=== PATIENT | female | born 1985 | race Caucasian/White ===

== ENCOUNTER 2025-01-17 15:34 | Outpatient (AMB) | payer BC, SELFPAY ==
[2025-01-17 15:37] VITALS: BP 112/64; PULSE 81; O2SAT 97; BMI 37.1
--- NOTE | 2025-01-17 15:37 | MHC.OFFVIS ---
Vital Signs 01/17/25 15:37 Height 5 ft 2 in Weight 202 lb 13.204 oz BMI 37.1 BP 112/64 Blood Pressure Location Lt brachial Position Sitting Pulse 81 Pulse Source Pulse Oximeter Pulse Oximetry (%) 97 Oxygen Delivery Method Room Air Intake Visit Reasons: sleep apnea Commercial Installer Required: No Allergies No Known Allergies Allergy (Verified 01/17/25 15:40) HPI HPI sleep apnea: Details: Clau is a pleasant 39 year old, former minimal smoker, with no significant past medical history. She was referred by PCP for evaluation of MECCA. The patient reports a long-standing history of snoring, which is a common trait among the women in her family. She does not recall when the snoring began but notes it has been persistent and significantly loud. The patient denies experiencing morning headaches, daytime tiredness, or feeling unrested upon waking. Although she does have an infant at home so occasionally will feel daytime fatigue. She reports no respiratory symptoms such as coughing, wheezing, or shortness of breath and has no history of asthma. The patient has a family history of sinus issues, although she does not report significant personal sinus problems. She denies any recent sinus infections or nasal congestion that could contribute to her symptoms. [facility] Social History (Updated 01/17/25 @ 15:41 by Felicitas Bauer Vick) Patient Tobacco Use Status: Former Tobacco user Review of Systems Const Denies chills, Denies excessive sweating, Denies fever(s), Denies headache(s) and Denies night sweats Eyes Denies dry eyes, Denies irritation and Denies itchy eyes ENT Reports Normal hearing present and Denies headache(s) Card Denies chest pain, Denies chest pain at rest, Denies chest pain with activity, Denies claudication, Denies leg edema, Denies dyspnea, Denies dyspnea on exertion, Denies orthopnea and Denies paroxysmal nocturnal dyspnea Resp Denies chest congestion, Denies cough, Denies excessive phlegm production, Denies pain on inspiration, Denies pain with cough, Denies dyspnea, Denies dyspnea on exertion, Denies stridor and Denies wheezing Musc Denies myalgias Neuro Reports Normal hearing present and Denies headache(s) Endo Denies excessive sweating Taras/Lymph Denies lymphadenopathy Aller/Immun Denies itchy eyes, Denies seasonal rhinorrhea and Denies wheezing Physical Exam Vital Signs: Last Vital Signs Pulse 81 01/17/25 15:37 BP 112/64 01/17/25 15:37 Pulse Ox 97 01/17/25 15:37 Oxygen Delivery Method Room Air 01/17/25 15:37 BMI result Body Mass Index 37.1 Const General: cooperative, healthy appearing, comfortable, no acute distress, well developed and alert Nutritional Appearance: obese Orientation/consciousness: patient oriented x3 Limitations: no limitations HEENT Head: Yes normal to inspection, Yes normocephalic and Yes atraumatic Ears: hearing grossly normal bilaterally and external ears normal Teeth and gingiva: other (Mallampati 2-3) Eyes General: appearance normal, both eyes and all related structures Eyelids: Yes eyelids normal Sclerae: sclerae normal EOM: EOMs intact bilaterally Neck Neck: Yes normal visual inspection and Yes no lymphadenopathy Lymphatic: no lymphadenopathy noted Chest Chest palpation & inspection: normal inspection of the chest Resp Effort & Inspection: normal respiratory effort, able to speak in complete sentences, no audible wheezes, no cough, no stridor, not tachypneic, no tripod positioning and no use of accessory muscles Auscultation: clear to auscultation bilaterally Cardio Jugular venous distension: no JVD Rate: regular rate Rhythm: regular rhythm Skin Other: warm, dry General skin exam: no rashes or lesions noted Neuro General: patient oriented x3 Cranial nerves: Yes Normal hearing present Cognition (Neuro): normal cognition Gait exam (Neuro): Normal gait present Extrem General: Yes normal to inspection, Yes capillary refill normal, Yes no clubbing, cyanosis or edema and Yes no pedal edema Psych Appearance: grossly normal and well kempt Speech and movement: Normal speech and movement present and Clear speech present Affect: normal affect Attitude: cooperative Thought process: Normal thought process present Thought content: Normal thought content present Insight: Good insight present (Psych) Judgement: Good judgement present (Psych) Assessment & Plan Assessment & Plan (1) Loud snoring: Code(s): R06.83 - Snoring Category: Medical Plan A home sleep study is recommended to evaluate for sleep apnea, given the patient's history of snoring and potential risk factors, including Mallampati score 2-3. The study will help determine the severity of any apneic events and guide further management. If the sleep study indicates mild sleep apnea, conservative measures such as positional therapy and lifestyle modifications may be considered. In cases of moderate to severe apnea, further interventions such as CPAP therapy or referral to an ENT specialist may be warranted. All questions were answered and patient is in agreement of plan. Will follow up to review results or sooner if needed. Orders: Orders RT home sleep study Today R06.83 - Snoring Coding Level of Care Code New Pt Level 3 (76792) Diagnoses Loud snoring R06.83
--- OUTSIDE RECORDS SUMMARY | 2025-01-17 15:45 | XMS_ITS | Clinical Summary ---
Author Organization [facility] Address [address] [place] [address] Phone Care Team Providers Care Behavioral Health Worker Name Role Phone Josselin Garcia Primary Care Provider [phone] Surgical History Surgery Date Site/Laterality Comments WISDOM TOOTH EXTRACTION 2014 PROCEDURE:WISDOM TOOTH EXTRACTION Family History Medical History Relation Name Comments Cholelithiasis Father Ava Diabetes type II Father Ava Heart attack Maternal Grandfather Alfie Heart attack Maternal Grandmother Milly Stroke Maternal Grandmother Milly Diabetes type II Mother Sangeeta Dementia Paternal Grandfather Ava COPD Paternal Grandmother Frank Relation Name Status Comments Father Ava Alive Maternal Grandfather Alfie (Age 59) Maternal Grandmother Milly (Age 85) Mother Sangeeta Alive Paternal Grandfather Ava (Age 83) Paternal Grandmother Frank (Age 62) Social History Tobacco Use Types Packs/Day Years Used Date Smoking Tobacco: Never Smokeless Tobacco: Never Alcohol Use Standard Drinks/Week Comments Yes 0 (1 standard drink = 0.6 oz pur e alcohol) Comments Unknown Sex and Gender Information Value Date Recorded Sex Assigned at Not on file Legal Sex Female 1:20 PM EST Gender Identity Not on file Sexual Orientation Not on file Obstetrics History Plan of Treatment Upcoming Encounters Date Type Department Care Team (Late st Contact Info) Description 02/01/2025 4:30 PM EDT Appointment [facility] [address] [place] [address] Health Maintenance Due Date Last Done Comments Cervical Cancer Screening: Pap Smear 2008 Depression Screening 06/11/2022 HIV Screening 06/11/2022 Hepatitis C Screening 06/11/2022 Social Influencers of Health Screening 06/11/2022 COVID-19 Vaccine ( season) 2024 Influenza Vaccine (#1) 2025 04/13/2020, 2015 Cholesterol Screening (Lipid Panel) 09/14/2025 09/14/2020 DTaP,Tdap,and Td Vaccines (10 - Td or Tdap) 04/09/2027 04/09/2017, 05/01/2006, 11/15/2003, Additional history exists HIB Vaccines Completed 01/18/1989 IPV Vaccines Completed 07/31/1992, 07/0 07/1988, 1987, Additional history exists MMR Vaccines Completed 10/13/1997, 10/12/1988 Hepatitis B Vaccines Completed 12/22/2000, 11/19/1999, 10/15/1999 Meningococcal ACWY Vaccine Completed 05/01/2006 HPV Vaccines Aged Out No longer eligi ble based on patient's age to complete this topic Hepatitis A Vaccines Aged Out No long er eligible based on patient's age to complete this topic Meningococcal B Vaccine Aged Out No l onger eligible based on patient's age to complete this topic Pneumococcal Vaccine: Pediatrics (0 to 5 Years) and At-Risk Patients (6 to 49 Years) Aged Out No longer eligible based on patient's age to complete this topic RSV Immunization Patients Under 20 months Aged Out No longer eligible based on patient's age to complete this topic Varicella Vaccines Aged Out No longer eligible based on patient's age to complete this topic Insurance [employer] Care Teams Behavioral Health Worker Relationship Specialty Start Date End Date Josselin Garcia PA [address] [place] [phone] PCP - General 09/07/24
--- OUTSIDE RECORDS SUMMARY | 2025-01-17 15:45 | XMS_ITS | Data Portability ---
Author Organization [place] - [facility], [facility] Address [address] [place] [address] Assessment No assessment recorded. Plan of Treatment Reminders Order Date Submit Date Provider Last Modified By Organization Details Last Modified Time Details Appointments None recorded. Lab urinalysis , dipstick 2019 020 In-Office Order, Internal Use Only DO Not Attach Compendium DO Not Attach Compendium, Do Not Delete/merge, [id number] 0 11:03:59 pap, IG + HPV 2019 020 [facility], [address] [place], [id number] 0 14:23:44 Referral None recorded. Procedures None recorded. Surgeries None recorded. Imaging None recorded. Medication Orders None recorded. Patient TargetsNo targets recorded. Patient Instructions Encounter Date Encounter Id Patient Instructions Last Modified By Organization Details Last Modified Time 08/03/2019 [id number] tips to help you stay healthy Not available 08/03/2019 11:03:59 Reason for Referral None Reported. Results Created Date Observation Date Name Description Value Unit Range Abnormal Flag Note LastModifiedBy Organization Detail LastModifiedTime 08/03/19 20 08/03/2019 urina lysis , dipst ick Leukocytes Negati ve Not Available In-Office Order Internal Use Only DO Not Attach Compendium DO Not Attach Compendium, Do Not Delete/merge, [id number] 08/03/2019 10:46:31 08/03/19 20 08/03/2019 urina lysis , dipst ick Nitrite negati ve Not Available In-Office Order Internal Use Only DO Not Attach Compendium DO Not Attach Compendium, Do Not Delete/merge, [id number] 08/03/2019 10:46:31 08/03/1908/03/2019 urina lysis , dipst ick Urobilinogen Normal : 0.2 mg/dl Not Available In-Office Order Internal Use Only DO Not Attach Compendium DO Not Attach Compendium, Do Not Delete/merge, [id number] 08/03/2019 10:46:31 08/03/1908/03/2019 urina lysis , dipst ick Protein Negati ve Not Available In-Office Order Internal Use Only DO Not Attach Compendium DO Not Attach Compendium, Do Not Delete/merge, 08/03/2019 10:46:08/03/1908/03/2019 urina lysis , dipst ick pH 5.0 Not Available In-Office Order Internal Use Only DO Not Attach Compendium DO Not Attach Compendium, Do Not Delete/merge, 08/03/2019 10:46:31 08/03/1908/03/2019 urina lysis , dipst ick Blood Modera te: +2 Not Available In-Office Order Internal Use Only DO Not Attach Compendium DO Not Attach Compendium, Do Not Delete/merge, 08/03/2019 10:46:31 08/03/1908/03/2019 urina lysis , dipst ick Specific [place] 1.000 Not Available In-Off ice Order Internal Use Only DO Not Attach Compendium DO Not Attach Compendium, Do Not Delete/merge, 08/03/2019 10:46:31 08/03/1908/03/2019 urina lysis , dipst ick Ketone Negati ve Not Available In-Office Order Internal Use Only DO Not Attach Compendium DO Not Attach Compendium, Do Not Delete/merge, 08/03/2019 10:46:31 08/03/1908/03/2019 urina lysis , dipst ick Bilirubin Negati ve Not Available In-Office Order Internal Use Only DO Not Attach Compendium DO Not Attach Compendium, Do Not Delete/merge, [id number] 08/03/2019 10:46:31 08/03/1908/03/2019 urina lysis , dipst ick Glucose Negati ve Not Available In-Office Order Internal Use Only DO Not Attach Compendium DO Not Attach Compendium, Do Not Delete/merge, [id number] 08/03/2019 10:46:31 08/04/1908/04/2019 HPV DNA, high- risk HPV MRNA E6/E7 Negati ve negati ve APTIM A HPV assay detec ts 14 high risk HPV types (HPV 16,18 ,31,3 3,35, 39,45 ,51,5 2,56, 58,59 ,66,6 8). The assay is FDA appro ozzie for testi ng ThinP rep liqui d Pap vials but not FDA appro ozzie for detec ting HPV in SureP ath liqui d Pap speci mens. In-ho use valid ation has shown the assay can detec t all [facility] Not Available [facility] [address] [place], [address] 08/06/2019 14:23:41 08/04/1908/04/2019 pap, IG + HPV report Report Final Gynec ologi estuardo Cytol ogy Repor t ----- ----- ----- ----- ----- ----- ----- ----- ----- ----- ----- ----- ThinP rep Pap Test, HPV Scree n, Refle x HPV Genot ype SPECI MEN ADEQU ACY: SATIS FACTO RY FOR EVALU ATION ; ENDOC ERVIC AL/TR ANSFO RMATI ON ZONE COMPO NENT ABSEN T/INS [facility] . INTER PRETA TION: NEGAT AARON FOR INTRA EPITH IGNACIO [place] OR RODY HUNT . Elect nicolasa Bravo d: Markell mota, ANA CRISTINA Vidal (ASCP ) ----- ----- ----- ----- ----- ----- ----- ----- ----- ----- ----- ----- CLINI ESTUARDO INFOR BIJAL N: LMP: NG Speci men [facility] e: Cervi x, Endoc ervix HPV RESUL TS: HPV mRNA E6/E7 Appro ozzie: 08/04 Negat aaron REF RANGE : Negat aaron CPT Codes : 99077 ICD Codes : Z01.4 19 Not Available [facility] [address] [place], [address] 08/06/2019 14:23:44 Result Notes None recorded. Problems No Known Problems Procedures Surgical History Date Name Laterality Status Provider Name and Address Organization Details Recorded Time 08/03/2019 Date of Last Pap Smear completed SPEEDY CARLSON APRN [address] [facility], [address] [place] [address], [phone], [facility] 08/03/2019 11:07:08 Imaging Results None recorded. Procedure Notes None recorded. Medical Equipment None Reported. Allergies No known drug allergies Medications Not known to be on any medication Vitals Date Recorded Body height Body mass index (BMI) Body weight Systolic And Diastolic Provider Name and Address Organization Details Last Updated DateTime 08/03/2019 157.48 cm 33.5 kg/m2 75054.4 g 130/82 mm[Hg] Linda Juliette [facility] 08/03/2019 10:45:41 Social History Question Answer Notes LastModified by [employer] Details LastModified Time Tobacco Smoking Status Former Smoker Quit 2014, smoked for 5 years SPEEDY CARLSON APRN [address] [facility], [address] [place] [address], [phone], [facility] 08/03/2019 10:49:14 Drug Use? No Information no t available 08/03/2019 Sex: Unknown Functional Status Question Answer Note LastModified by [employer] Details LastModified Time What is your level of alcohol consumption? 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 Family History Relationship Description Onset Age of this Age Resolved Age Notes LastModified by Organization Details LastModified Time Maternal Aunt Malignant tumor of breast 50 Not available 2019 10:48:08 Father Diabetes mellitus Not available 2019 10:48:45 Mother Diabetes mellitus multip le aunts, uncles , grandp arents as well Not available 08/03/2019 10:48:45 Notes:no family hx of ovaria n, uterine or colon cancer Medical History No medical history recorded. Gynecological History Statement/Question Response Abnormal Pap N Date of LMP 2019 STIs/STDs N HPV Vaccine Y Duration of Flow (days) 6 Age at Menarche 14 Current Control Method None Frequency of Cycle (Q days) 26 Sexually Active? Yes Sexual Problems? N Date of Last Pap Smear 08/03/2019 Obstetrics History GPAL:G 0 P 0 0 0 0 Past Encounters Encounter ID Performer Location Encounter Start Date Encounter Closed Date Diagnosis/Indication Diagnosis SNOMED-CT Code Diagnosis ICD10 Code Diagnosis Note [id number] SPEEDY CARLSON APRN CWO1 [address] [place] [phone] 08/03/2019 10:31:31 08/03/2019 11:11:27 Gynecologic examination 52208494 Z01.419 A/P: -Pap done today. - Discussed control, declined now, TTC. Start PNV. -Reviewed self breast exams/percy st awareness -Encourage d healthy lifestyle: diet, exercise, no smoking, alcohol in moderation , annual visits with PCP for labs. RTO in 1 year or PRN Health Concerns Section Related Observation LastModified by Organization Detai ls LastModified Time None Recorded Concern Status LastModified by Organization Details LastModified Time None Recorded Advance Directives Directive None Recorded Payers Insurance Date Sequence Insurance Name Policy Number Policy Cadet Covered Member ID Cadet Member ID Guarantor Name 08/09/2019 1 OBDULIANA [id number] Clau Peters [id number] Clau Peters Notes Date Note Type Note Provider Name and Address Organization Details Recorded Time 08/03/2019 text/html 34 y/o G0 here f or annual exam. Feeling well. Last pap 2013. No hx of abnormal paps. Sexually active with . Not using any contraception, ok if she gets . C/o intermittent left armpit burning feeling- seen by PCP who recommended switching deoderant which has helped. She also has dry skin and feels her bra might be chaffing that area. Works in [employer] for a group of [employer] SPEEDY CARLSON APRN [address] [place], [place] [address], [address] Floor, [place], [address], [place] [facility] 08/03/2019 11:46:29 OBGyn Episode No OBEpisode recorded.
--- OUTSIDE RECORDS SUMMARY | 2025-01-17 15:45 | XMS_ITS | Encounter Summary ---
Author Organization [facility] Address [address] [place] [id number] Care Team Providers Care Pc Tech Name Role Phone Pcp, No Primary Care Provider Unavailabl e Hussain Gould MD Primary Care Provider [phone] Madhav Toribio DO Unavailable Pcp, No Primary Care Provider Unavailabl e Reason for Visit * Reason Comments Other Encounter Details Date Type Department Care Team (Late st Contact Info) Description 11/04/2022 Telephone [facility] [address] [place] [phone] Pcp, No Other Social History Tobacco Use Types Packs/Day Years Used Date Smoking Tobacco: Former Cigarettes Smokeless Tobacco: Never Alcohol Use Standard Drinks/Week Comments Yes 0 (1 standard drink = 0.6 oz pur e alcohol) 1-3 drinks per week PHQ-2 Answer Date Recorded PHQ-2 Total Score 0 11/07/2022 Comments Unknown Sex and Gender Information Value Date Recorded Sex Assigned at Not on file Legal Sex Female 12:18 PM EDT Gender Identity Not on file Sexual Orientation Not on file COVID-19 Exposure Response Date Recorded In the last 10 days, have yo u been in contact with someone who was confirmed or suspected to have Coronavirus/COVID-19? No / Unsure 11/07/2022 9:38 AM EDT documented as of this encounter Functional Status * Question Answer Date of Assessment Author Feeling nervous, anxious, or on edge 0 11/07/2022 9:56 AM EDT Radha Rivas MA Not being able to stop or co ntrol worrying 0 11/07/2022 9:56 AM EDRadha Lay MA Worrying too much about diff erent things 0 11/07/2022 9:56 AM EDT Radha Rivas MA Trouble relaxing 0 11/07/2022 9:56 AM EDT Radha Verde MA Being so restless that it is hard to sit still 0 11/07/2022 9:56 AM EDT Radha Rivas MA Becoming easily annoyed or irritable 0 11/07/2022 9:56 AM EDT Radha Rivas MA Feeling afraid as if somethi ng awful might happen 0 11/07/2022 9:56 AM EDRadha Lay MA * Over the past 2 weeks, how often have you been bothered by any of the following problems? Question Answer Date of Assessment Author Patient Health Questionnaire -2 Score 0 11/07/2022 9:56 AM Radha Lloyd MA * Question Answer Date of Assessment Author Patient Health Questionnaire -9 Score 0 11/07/2022 9:56 AM EDRadha Lay MA * Over the last 2 weeks, how often have you been bothered by any of the following problems? Question Answer Date of Assessment Author FELIPE-7 Total Score 0 11/07/2022 9:56 AM Radha Lloyd MA * Question Answer Date of Assessment Author Little interest or pleasure in doing things Not at all 11/07/2022 9:56 AM Radha Lloyd MA Feeling down, depressed, or hopeless Not at all 11/07/2022 9:56 AM Radha Lloyd MA Trouble falling or staying asleep, or sleeping too much Not at all 11/07/2022 9:56 AM Radha Lloyd MA Feeling tired or having little energy Not at all 11/07/2022 9:56 AM Radha Lloyd MA Poor appetite or overeating Not at all 11/07/2022 9:56 AM Radha Lloyd MA Feeling bad about yourself - or that you are a failure or have let yourself or your family down Not at all 11/07/2022 9:56 AM Radha Lloyd MA Trouble concentrating on things, such as reading the newspaper or watching television Not at all 11/07/2022 9:56 AM Radha Lloyd MA Moving or speaking so slowly that other people could have noticed? Or the opposite - being so fidgety or restless that you have been moving around a lot more than usual. Not at all 11/07/2022 9:56 AM Radha Lloyd MA Thoughts that you would be better off or hurting yourself in some way Not at all 11/07/2022 9:56 AM Radha Lloyd MA How difficult have these problems made it for you to do your work, take care of things at home, or get along with other people? Not difficult at all 11/07/2022 9:56 AM Radha Lloyd MA documented as of this encounter Miscellaneous Notes * Telephone Encounter - Marly Weinberg RN - 11/05/2022 1:22 PM EDT Advised patient of below. She verbalized understanding. documented in this encounter Plan of Treatment Not on file documented as of this encounter Visit Diagnoses Not on filedocumented in this encounter Care Teams Pc Tech Relationship Specialty Start Date End Date Pcp, No PCP - General General Medicine 09/10/22 11/06/22 Hussain Gould MD PCP - General Internal Medicine 11/07/22 09/15/24 Madhav Toribio DO [address] [place] [address] PCP - [place] [employer] Attributed 07/14/22 11/10/22 Pcp, No PCP - General General Medicine 09/16/24 documented as of this encounter
--- OUTSIDE RECORDS SUMMARY | 2025-01-17 15:45 | XMS_ITS | Clinical Summary ---
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 Annual physical exam 08/03/2019 Last Assessment & Plan: Up-to-date with tetanus shot BMI 32.0-32.9,adult 08/03/2019 Last Assessment & Plan: Diet and exercise discussed with patient in details. Anxiety 08/03/2019 Last Assessment & Plan: Stable, Seeing therapist. Pain in axilla, left 06/16/2019 Last Assessment & Plan: Advised to avoid tight clothing around the armpit Try trimming instead of shaving Change deodorant If doesn't go away, get ultrasound done Can also try hydrocortisone cream OTC Healthcare maintenance 04/09/2017 Resolved Problems Problem Noted Date Diagnosed Date Resolved Date Encounter for routine gyneco logical examination 03/27/2016 04/09/2017 Contact with and suspected e xposure to infections with predominantly sexual mode of transmission 03/27/2016 04/09/2017 Immunizations Name Administration Dates Next Due Influenza Quad (Afluria/Fluz one) 0.5mL >=6mon Vial (SD-IIV4) 04/13/2020,04/27/2016 Tdap 04/09/2017,03/28/2003 Family History Medical History Relation Name Comments [...] Date Smoking Tobacco: Never Smokeless Tobacco: Never Tobacco Cessation:Counseling Given: No Alcohol Use Standard Drinks/Week Comments Yes 0 (1 standard drink = 0.6 oz pur e alcohol) social weekly drinker Sex and Gender Information Value Date Recorded Sex Assigned at Not on file Gender Identity Not on file Sexual Orientation Not on file Last Filed Vital Signs Vital Sign Reading Time Taken Comments Blood Pressure 126/82 08/30/2020 3:04 PM EST Pulse 83 08/30/2020 3:04 PM EST Temperature 36.3 C (97.3 F) 08/30/2020 3:04 PM EST Respiratory Rate 14 08/03/2019 11:21 AM EST Oxygen Saturation 97% 08/30/2020 3:04 PM EST Inhaled Oxygen Concentration - - Weight 84.1 kg (185 lb 6.4 oz) 08/30/2020 3:04 P M EST Height 160 cm (5' 3 ) 08/30/2020 3:04 PM EST Body Mass Index 32.84 08/30/2020 3:04 PM EST Plan of Treatment Health Maintenance Due Date Last Done Comments Cervical Cancer Screening (HPV every 5 years) 1985 Hepatitis B Vaccines (1 of 3 - 3-dose series) 1985 Hepatitis C Screening 1985 COVID-19 Vaccine (#1) 01/28/1988 BMI Counseling 08/30/2021 08/30/2020, 04/14, 04/09/2017 Depression Screening 08/30/2021 08/30/2020, 05/11/2018, 04/09/2017, Additional history exists Preventative Health Evaluation 08/30/2021 08/30/2020, 08/30/2020, 08/03/2019, Additional history exists Cervical Cancer Screening (Pap Smear) 07/14/2024 07/14/2019, 03/27/2016, 06/06/2014 Influenza Vaccine (#1) 2025 04/13/2020, 2015 DTap / Tdap / Td (3 - Td or Tdap) 04/09/2027 04/09/2017, 03/28/2003 Pneumococcal Vaccine Aged Out No long er eligible based on patient's age to complete this topic RSV Ped < 20 months Aged Out No longe r eligible based on patient's age to complete this topic Clau Peters Personal/Family Self 1985 [address] [place], [place]
--- OUTSIDE RECORDS SUMMARY | 2025-01-17 15:46 | XMS_ITS | Patient Health Record ---
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 Metabolic Panel ([id number] Reviewed date:08/16/2024 04:10:28 PM Interpretation: Performing Lab:[facility] [place], [address] [place] [address], Phone - [phone], Director - [facility] Notes/Report: Test(s) 018953-Rsxpfruznwjs, Total, LC/MS was developed and its performance characteristics determined by [facility]. It has not been cleared or approved by the Food and Drug Administration. Glucose 136 70-99 mg/dL BUN 15 6-20 mg/dL Creatinine 0.73 0.57-1.00 mg/dL eGFR 109 >59 mL/min/1.73 BUN/Creatinine Ratio 21 9-23 Sodium 138 134-144 mmol/L Potassium 4.3 3.5-5.2 mmol/L Chloride 104 96-106 mmol/L Carbon Dioxide, Total 21 20-29 mmol/L Calcium 9.4 8.7-10.2 mg/dL Protein, Total 7.2 6.0-8.5 g/dL Albumin 4.2 3.9-4.9 g/dL Globulin, Total 3.0 1.5-4.5 g/dL Bilirubin, Total 0.3 0.0-1.2 mg/dL Alkaline Phosphatase 123 44-121 IU/L AST (SGOT) 18 0-40 IU/L ALT (SGPT) 25 0-32 IU/L Lipid Panel-[id number] Reviewed date:08/16/2024 04:11:52 PM Interpretation: Performing Lab:[facility] [place], [address] [place] [address], [place], Phone - [phone], Director - Celia Notes/Report: Test(s) 643534-Owmtxqpzruqv, Total, LC/MS was developed and its performance characteristics determined by [facility]. It has not been cleared or approved by the Food and Drug Administration. Cholesterol, Total 148 100-199 mg/dL Triglycerides 157 0-149 mg/dL HDL Cholesterol 40 >39 mg/dL VLDL Cholesterol Woo 27 5-40 mg/dL LDL Chol Calc (NIH) 81 0-99 mg/dL Vitamin D, 38-Iiehaoo-[id number] Reviewed date:08/16/2024 08:30:08 AM Interpretation: Performing Lab:[facility] [place], [address] [place] [address], Phone - [phone], Director - Celia Notes/Report: Test(s) 835960-Decbwxvaipjk, Total, LC/MS was developed and its performance characteristics determined by [facility]. It has not been cleared or approved by the Food and Drug Administration. Vitamin D, 25-Hydroxy 35.0 30.0-100.0 ng/mL Vitamin D deficiency has been defined by the State Line of Medicine and an Endocrine Society practice guideline as a level of serum 25-OH vitamin D less than 20 ng/mL (1,2). The Endocrine Society went on to further define vitamin D insufficiency as a level between 21 and 29 ng/mL (2). 1. IOM (State Line of Medicine). 2010. Dietary reference intakes for calcium and D. [place]: The National Academies Press. 2. Ramona MF, Rafita NC, Shaila SNYDER, et al. Evaluation, treatment, and prevention of vitamin D deficiency: an Endocrine Society clinical practice guideline. JCEM. 2010; 96(7):1911-30. Testosterone, Free+Total LC/ MS-[id number] Reviewed date:08/16/2024 08:30:08 AM Interpretation: Performing Lab:[facility] [place], [address] [place] [address], [place], Phone - [phone], Director - Celia Notes/Report: Test(s) 385358-Loztaxgsrzie, Total, LC/MS was developed and its performance characteristics determined by [facility]. It has not been cleared or approved by the Food and Drug Administration. Testosterone, Total, LC/MS 10.6 10.0-55.0 ng/d L Free Testosterone(Direct) 0.6 0.0-4.2 pg/mL FSH and LH-053741 Reviewed date:08/16/2024 08:30:08 AM Interpretation: Performing Lab:[facility] [address], Phone - [phone], Director - [facility] Notes/Report: Test(s) 281468-Nywroaejlavu, Total, LC/MS was developed and its performance characteristics determined by [facility]. It has not been cleared or approved by the Food and Drug Administration. LH 7.0 Adult Female Range Follicular phase 2.4 - 12.6 Ovulation phase 14.0 - 95.6 Luteal phase 1.0 - 11.4 Postmenopausal 7.7 - 58.5 FSH 3.9 Adult Female Range Follicular phase 3.5 - 12.5 Ovulation phase 4.7 - 21.5 Luteal phase 1.7 - 7.7 Postmenopausal 25.8 - 134.8 Triiodothyronine (T3), Free- [id number] Reviewed date:08/16/2024 08:30:08 AM Interpretation: Performing Lab:[facility] [address], [place], Phone - [phone], Director - [facility] Notes/Report: Test(s) 375219-Qvzmpnszpuzk, Total, LC/MS was developed and its performance characteristics determined by [facility]. It has not been cleared or approved by the Food and Drug Administration. Triiodothyronine (T3), Free 3.7 2.0-4.4 pg/mL CBC With Differential/Platel et-[id number] Reviewed date:08/16/2024 08:30:43 AM Interpretation: Performing Lab:[facility] [address], Phone - [phone], [facility] Notes/Report: Test(s) 932309-Oyrpohgihfps, Total, LC/MS was developed and its performance characteristics determined by [facility]. It has not been cleared or approved by the Food and Drug Administration. WBC 8.3 3.4-10.8 x10E3/uL RBC 4.54 3.77-5.28 x10E6/uL Hemoglobin 12.6 11.1-15.9 g/dL Hematocrit 38.9 34.0-46.6 % MCV 86 79-97 fL MCH 27.8 26.6-33.0 pg MCHC 32.4 31.5-35.7 g/dL RDW 13.3 11.7-15.4 % Platelets 281 150-450 x10E3/uL Neutrophils 66 Not Estab. % Lymphs 24 Not Estab. % Monocytes 7 Not Estab. % Eos 2 Not Estab. % Basos 1 Not Estab. % Neutrophils (Absolute) 5.5 1.4-7.0 x10E3/uL Lymphs (Absolute) 2.0 0.7-3.1 x10E3/uL Monocytes(Absolute) 0.6 0.1-0.9 x10E3/uL Eos (Absolute) 0.1 0.0-0.4 x10E3/uL Baso (Absolute) 0.1 0.0-0.2 x10E3/uL Immature Granulocytes 0 Not Estab. % Immature Grans (Abs) 0.0 0.0-0.1 x10E3/uL Estrogens, Total-[id number] Reviewed date:08/16/2024 08:30:08 AM Interpretation: Performing Lab:[facility] [place], [address] [place] [address], [place], Phone - [phone], Director - [facility] Notes/Report: Test(s) 149631-Esbngdqmvosw, Total, LC/MS was developed and its performance characteristics determined by [facility]. It has not been cleared or approved by the Food and Drug Administration. Estrogens, Total 161 Prepubertal < 40 Female Cycle: 1-10 Days 16 - 328 11-20 Days 34 - 501 21-30 Days 48 - 350 Post-Menopausal 40 - 244 Insulin-431326 Reviewed date:08/16/2024 08:30:08 AM Interpretation: Performing Lab:[facility], [address] [facility], [place], Phone - [phone], Director - [facility] Notes/Report: Test(s) 347143-Sfsggpceaulj, Total, LC/MS was developed and its performance characteristics determined by [facility]. It has not been cleared or approved by the Food and Drug Administration. Insulin 22.3 2.6-24.9 uIU/mL Progesterone-284870 Reviewed date:08/16/2024 08:30:08 AM Interpretation: Performing Lab:[facility] [address], Phone - [phone], [facility] Notes/Report: Test(s) 042163-Dfqtvehujqbs, Total, LC/MS was developed and its performance characteristics determined by [facility]. It has not been cleared or approved by the Food and Drug Administration. Progesterone 8.3 Follicular phase 0.1 - 0.9 Luteal phase 1.8 - 23.9 Ovulation phase 0.1 - 12.0 First trimester 11.0 - 44.3 Second trimester 25.4 - 83.3 Third trimester 58.7 - 214.0 Postmenopausal 0.0 - 0.1 TSH-[id number] Reviewed date:08/16/2024 08:30:08 AM Interpretation: Performing Lab:[facility] [address], Phone - [phone], [facility] [place]/Report: Test(s) 702627-Fylkicbxrcra, Total, LC/MS was developed and its performance characteristics determined by [facility]. It has not been cleared or approved by the Food and Drug Administration. TSH 1.120 0.450-4.500 uIU/mL Cortisol-627809 Reviewed date:08/16/2024 08:30:08 AM Interpretation: Performing Lab:[facility] [address], Phone - [phone], [facility] [place]/Report: Test(s) 776123-Mjzpgfnbcmkp, Total, LC/MS was developed and its performance characteristics determined by [facility]. It has not been cleared or approved by the Food and Drug Administration. Cortisol 6.5 6.2-19.4 ug/dL Please Note: The reference interval and flagging for this test is for an AM collection. If this is a PM collection please use: Cortisol PM: 2.3-11.9 Thyroxine (T4) Free, Direct- [id number] Reviewed date:08/16/2024 08:30:08 AM Interpretation: Performing Lab:[facility] [address], Phone - [phone], [facility] Steve Notes/Report: Test(s) 956590-Nhkpeafrzaka, Total, LC/MS was developed and its performance characteristics determined by [facility]. It has not been cleared or approved by the Food and Drug Administration. T4,Free(Direct) 1.36 0.82-1.77 ng/dL Vitamin [id number] Reviewed date:08/16/2024 08:30:08 AM Interpretation: Performing Lab:[facility] [place], [address] [place] [address], [place], Phone - [phone], Director - [facility] Notes/Report: Test(s) 714440-Upsmmojbudht, Total, LC/MS was developed and its performance characteristics determined by [facility]. It has not been cleared or approved by the Food and Drug Administration. Vitamin B12 237 933-7336 pg/mL Hemoglobin H5e-966044 Reviewed date:08/16/2024 04:12:00 PM Interpretation: Performing Lab:[facility] [place], [address] [place] [address], [place], Phone - [phone], Director - [facility] Notes/Report: Test(s) 650944-Rudasvpzwplm, Total, LC/MS was developed and its performance characteristics determined by [facility]. It has not been cleared or approved by the Food and Drug Administration. Hemoglobin A1c 6.3 4.8-5.6 % . Prediabetes: 5.7 - 6.4 Diabetes: >6.4 Glycemic control for adults with diabetes: <7.0 Reason For Referral Reason Evaluate & Treat Diagnosis 1 Sleep apnea, unspeci fied type (G47.30) Referral Organization [facility] Referring Provider First Name RAIZA Referring Provider Last Name NIKI Referring Provider Speciality Internal edicine Referred Provider Isacc Palomares Referred Provider Specialty Pulmonology General Notes Delfina Antonio 2024 09:39:40 AM > sent referral to DEANGELO leung KIERSTEN 08/24/2024 10:39:24 AM >[address] [facility], [address], [facility] [address], 5 [address] from Patient's Address, , Referral Priority Routine Reason Evaluate & Treat C oncerns about moles Diagnosis 1 Skin mole (D22.9) Referral Organization [facility] Referring Provider First Name RAIZA Referring Provider Last Name NIKI Referring Provider Speciality Internal edicine Referred Provider Specialty Dermatology General Notes Delfina Antonio 2024 09:41:41 AM > stephenson , \ , Referral Priority Routine Reason Dr Hampton Diagnosis 1 Sleep apnea, unspeci fied type (G47.30) Referral Organization [facility] NATHAN KARIMI Referring Provider First Name RAIZA Referring Provider Last Name NIKI Referring Provider Speciality Internal edicine Referred Provider Specialty Pulmonology General Notes Delfina Antonio 2024 08:25:51 AM > [facility] , [phone], [phone] Clinical Notes HARRY BRIGHTTEN 0 11/17/2024 09:44:23 AM >Yasmeen from [facility], called and stated that they do not see patient for sleep studies, they normally refer them out to either [facility] or somewhere else, I will refer her to Dr dyer in [place], [phone], [phone], Marina Dodson 11/22/2024 04:10:52 PM > Scheduled for 01/15 at 3:30 pm at [facility]. Pt aware Referral Priority Routine Reason Evaluate & Treat Diagnosis 1 Routine gynecologica l examination (Z01.419) Referral Organization [facility] NATHAN KARIMI Referring Provider First Name RAIZA Referring Provider Last Name NIKI [facility] Referred Provider Specialty OB - Gynecol ogy General Notes Ashley Rivera 0 01/03/2025 10:52:36 AM > [facility] p. [phone], f. [phone], Ashley Rivera 01/05/2025 11:22:27 AM >Faxed to [facility] Referral Priority Routine Medications Medication SIG (Take, Route, Fr equency, Duration) Notes Start Date End Date Status Fiber Active Meridian 3 Active Digestive Enzyme - as directed Orally Active Probiotic 250 MG as directed Orally Active 28-0.8 MG 2 tablet Orally Once a day Active Social History Tobacco Use: Social History Observation Description Date Details (start date - stop date) Former Smoker NA - NA Tobacco Use/Smoking Question Answer Notes Are you a former smoker How long has it been since you last smoked? 5-10 years Alcohol Screen (Audit-C) Question Answer Notes Did you have a drink containing alcohol in the p ast year? No Points 0 Interpretation Negative Section Notes: quit drinking in 2022 Rare ETOH Patient works in [employer] quit drinking in 2022 Rare ETOH Patient works in [employer] quit drinking in 2022 Rare ETOH Patient works in [employer] quit drinking in 2022 Rare ETOH Patient works in [employer] quit drinking in 2022 Rare ETOH Patient works in [employer] quit drinking in 2022 Rare ETOH Patient works in [employer] quit drinking in 2022 Rare ETOH Patient works in [employer] quit drinking in 2022 Rare ETOH Patient works in [employer] Problems Problem Type SNOMED Code ICD Code Onset Dates Problem Status W/U Status Risk Notes Problem Vitamin D deficiency (53525713) Vitamin D deficiency, unspecified (E55.9) Active confirmed Problem Lipid screening (102222902) Encounter for screening for lipoid disorders (Z13.220) Active confirmed Problem Anxiety (55301824) Anxiety (F41.9) Active confirmed Problem Adult health examination (235392943) Adult general medical exam (Z00.00) Active confirmed Problem Sleep apnea (40766499) Sleep apnea, unspecified type (G47.30) Active confirmed Problem Seasonal allergy (515664450) Seasonal allergies (J30.2) Active confirmed Problem Skin mole (18133746) Skin mole (D22.9) Active confirmed Problem Numbness (09266987) Numbness (R20.0) Active confirmed Problem Diabetes mellitus screening (645430675) Diabetes mellitus screening (Z13.1) Active confirmed Problem Body mass index 40+ - morbidly obese (404685816) BMI 40.0-44.9, adult (Z68.41) Active confirmed Problem Type II diabetes mellitus without complication (394962447) Type 2 diabetes mellitus without complication, without long-term current use of insulin (E11.9) Active confirmed Problem Weight gain (708917214) Weight gain (R63.5) Active confirmed Problem Obese class II (785389254781753 ) BMI 39.0-39.9,adult (Z68.39) Active confirmed Problem Morbid obesity (663686194) Obesity, morbid, BMI 40.0-49.9 (E66.01) Active confirmed Problem Vitamin B>12< deficiency anaemia (15363954) Anemia due to vitamin B12 deficiency, unspecified B12 deficiency type (D51.9) Active confirmed Problem Obese class II (473775240891277 ) BMI 38.0-38.9,adult (Z68.38) Active confirmed Problem Endocrine/metabo lic screening (809573559) Encounter for screening for endocrine disorder (Z13.29) Active confirmed Problem Tingling (18906287) Tingling (R20.2) Active confirmed Problem History of gestational diabetes mellitus (997837065) History of gestational diabetes (Z86.32) Active confirmed Problem Morbid obesity (303035558) Severe obesity (BMI 35.0-39.9) with comorbidity (E66.01) Active confirmed Vital Signs Heart Rate 67 /min 01/03/2025 Oximetry 97 % 01/03/2025 Blood pressure diastolic 80 mm Hg 01/03/2025 Height 61 in 01/03/2025 Blood pressure systolic 122 mm Hg 01/03/2025 Weight 203.4 lbs 01/03/2025 BMI 38.43 kg/m2 01/03/2025 Encounters Encounter Location Date Provider Diagnosis [facility] [address] [place], [place] 07/06/2024 RAIZA NIKI Weight gain R63.5 ; Seasonal allergies J30.2 ; History of gestational diabetes Z86.32 and Anxiety F41.[address] [facility] [address] [place], [place] 08/12/2024 RAIZA NIKI BMI 40.0-44.9, adult Z68.41 ; Obesity, morbid, BMI 40.0-49.9 E66.01 ; Weight gain R63.5 and Dietary counseling and surveillance Z71.3 [facility] [address] [place], [place] 08/13/2024 RAIZA NIKI Weight gain R63.5 ; Adult general medical exam Z00.00 ; Seasonal allergies J30.2 ; History of gestational diabetes Z86.32 and Anxiety F41.9 [facility] [address] [place], [place] 09/14/2024 RAIZA NIKI BMI 40.0-44.9, adult Z68.41 ; Obesity, morbid, BMI 40.0-49.9 E66.01 ; Weight gain R63.5 and Dietary counseling and surveillance Z71.[address] [facility] [address] [place], [place] 10/14/2024 RAIZA NIKI BMI 39.0-39.9,adult Z68.39 ; Severe obesity (BMI 35.0-39.9) with comorbidity E66.01 ; Weight gain R63.5 ; Dietary counseling and surveillance Z71.3 and Excessive weight gain R63.[address] [facility] [address] [place], [place] 11/08/2024 RAIZA NIKI History of gestation al diabetes Z86.32 ; Prediabetes R73.03 ; Weight gain R63.5 ; Seasonal allergies J30.2 and Anxiety F41.[address] [facility] [address] [place], [place] 11/26/2024 RAIZA NIKI BMI 38.0-38.9,adult Z68.38 ; Severe obesity (BMI 35.0-39.9) with comorbidity E66.01 ; Dietary counseling and surveillance Z71.3 ; Weight gain R63.5 ; Excessive weight gain R63.5 and Encounter for examination of blood pressure without abnormal findings Z01.[address] [facility] [address] [place], [place] 01/03/2025 RAIZA NIKI BMI 38.0-38.9,adult Z68.38 ; Severe obesity (BMI 35.0-39.9) with comorbidity E66.01 ; Dietary counseling and surveillance Z71.3 ; Weight gain R63.5 ; Excessive weight gain R63.5 and Encounter for examination of blood pressure without abnormal findings Z01.30 [facility] [address] [facility] [address] [facility] [address] [place] [address] 07/29/2024 RAIZA NIKI [facility] [address] [place], [place] 08/13/2024 RAIZA NIKI Tingling R20.2 and Numbness R20.[address] [facility] [address] [facility] [place] [address] [place] [address] 09/01/[address] NIKI [facility] [address] [place], [place] 09/09/2024 RAIZA NIKI [facility] [address] [facility] [address] [place] [address] 09/09/2024 RAIZA NIKI [facility] [address] [facility] [address] [place] [address] 09/09/2024 RAIZA NIKI [facility] [address] [place] [address] 11/25/2024 RAIZA NIKI [facility] [address] [place] [address] 01/12/2025 RAIZA NIKI [facility] [address] [place] [address] 08/13/2024 RAIZA NIKI Assessments Encounter Date Diagnosis (ICD Code) Assessment Notes Treatment Notes Treatment Clinical Notes Section Notes 07/06/2024 Seasonal allergies (ICD-10 - J30.2) Clau is a pleasant 38-year-old female who presents to the office today for new patient evaluation. Patient is welcomed to the practice. Medications, medical history, allergies, surgeries, hospitalizations, family history, and social history were reviewed. Problem list updated. Cardiopulmonary and abdominal exam unremarkable. Patient will follow-up in office. All patient questions answered at this time. #Seasonal allergies: Currently controlled #Weight gain: Patient given information on the way a weight management consultation works, we discussed lifestyle changes, protein intake and water intake today briefly. The patient is encouraged to set up a weight management consultation to have a formal discussion about weight gain, and healthier lifestyle choices. Additionally we will be ordering a full panel of lab work to ensure there are no hormonal abnormalities at this time contributing to the stubborn weight gain. #Gestational diabetes: Patient does have a history of gestational diabetes, resolved. #Anxiety: Currently on no medications, patient would benefit from PHQ-9 at physical exam. All questions have been answered to patient's satisfaction. Patient verbalized understanding of diagnosis and treatments explained. Advised to call sooner prior to next visit it any questions/concerns arise. Case discussed with Darci YA who reviewed the assessment and plan. Chart, medications, labs, vital signs reviewed. Dictation was accomplished with the use of [employer] voice recognition software, which is prone to medical misidentifications and grammatical errors. This are unintentional and the practitioner does try to identify and correct these, but some could still be present. Please do not hesitate to contact practitioner for clarification. 07/06/2024 Weight gain (ICD-10 - R63.5) Clau is a pleasant 38-year-old female who presents to the office today for new patient evaluation. Patient is welcomed to the practice. Medications, medical history, allergies, surgeries, hospitalizations, family history, and social history were reviewed. Problem list updated. Cardiopulmonary and abdominal exam unremarkable. Patient will follow-up in office. All patient questions answered at this time. #Seasonal allergies: Currently controlled #Weight gain: Patient given information on the way a weight management consultation works, we discussed lifestyle changes, protein intake and water intake today briefly. The patient is encouraged to set up a weight management consultation to have a formal discussion about weight gain, and healthier lifestyle choices. Additionally we will be ordering a full panel of lab work to ensure there are no hormonal abnormalities at this time contributing to the stubborn weight gain. #Gestational diabetes: Patient does have a history of gestational diabetes, resolved. #Anxiety: Currently on no medications, patient would benefit from PHQ-9 at physical exam. All questions have been answered to patient's satisfaction. Patient verbalized understanding of diagnosis and treatments explained. Advised to call sooner prior to next visit it any questions/concerns arise. Case discussed with Darci YA who reviewed the assessment and plan. Chart, medications, labs, vital signs reviewed. Dictation was accomplished with the use of [employer] voice recognition software, which is prone to medical misidentifications and grammatical errors. This are unintentional and the practitioner does try to identify and correct these, but some could still be present. Please do not hesitate to contact practitioner for clarification. 08/12/2024 BMI 40.0-44.9, adult (ICD-10 - Z68.41) Clau is a pleasant 39-year-old female who presents to the office today for a weight management consult. 08/12/2024: BMI 41.47, weight 219.5 we discussed supplements at the patient may benefit from including probiotic, cortisol manager etl, HPA adapt. Additionally discussed make injection benefits, patient would like to hold off for now until her lab work is completed for review. Additionally patient is not interested in weight loss medications at this time, however may reconsider in the future. Patient has been found to be obese with a BMI of 41.47. We spent a lot of time discussing the relationship between food, exercise, sleep, mental health and obesity. Patient was counseled on the importance EATING local, organic food when possible. Patient was educated on clean 15 and dirty dozen. I provided information about reading books called The Food Rules by Blake Boothe and Eat Fat Get Lean by Dr Misbah Spear. Self education is important in the journey for weight management. Patient was offered diagnostic testing. We want to measure visceral adiposity, advanced body composition, adverse lipids, fatty acid balance, risk for heart disease and atherosclerosis, markers of inflammation and genetic susceptibility. Patient was counseled on weight management and was advised to lose weight using A. Meal Replacement Products Patient was educated on the replacement products called optifast. This is a good way of taking fixed amount of calories. It has been shown in studies to be ineffective weight management tool. This however has to be coupled with lifestyle intervention as well as laboratory data and EKG monitoring. It is impossible to know how a person will tolerate complete meal replacement. The side effects of meal replacement and weight loss could include syncopal attacks, dizziness, gallstones, potential cholecystectomy, possible heart attack and even . The benefits of meal replacement would be potential weight loss but no guarantees can be made. Meal replacement products are not covered by insurance. Once the patient has bought these products we cannot return them B. Lifestyle management which includes several strategies as below 1. Eat a low carbohydrate good fat good protein diet. Eliminate refined carbohydrates from the diet. Continue blood sugar and sugared beverages. Eat local organic when possible. Cook your own meals. Read food labels. None about healthy snacks. Portion control and food with low glycemic index 2. Exercise regularly. Try to get at least 6000 steps a day. Use a predominant to track activity level. Consider using apps like Cargo.io, Equinextnesspal, lose it, stick as needed for self-monitoring and weight management. Consider group exercises. Consider hiring a production trainer. Regular exercise is spear to sustainable health and prevents as a buffer against weight regain 3. Sleep is most important for healing. Tried to sleep at least 8 hours a night. A good quality sleep needs a sleep ritual with ideal room temperature of around 68. It might help to take a shower and have no electronics in the room and sleep in a very dark room without artificial light. Start her sleep routine and get up early in the morning and go to bed on time 4. Make a social connection. Surround yourself with positive people with positive energy. Connect with friends and family. 5. Get into the habit of meditating and mindfulness while doing everything. 6. Go outside and connect with nature. C. Prescription medications Patient was educated on the use of prescription medications for medical weight loss. This is a growing list and includes phentermine, Topamax,Qsymia, contrave, belviq and saxenda. All prescription medications could have side effects including but not limited to kidney stones seizure disorder cardiac arrhythmias heart attack pancreatitis etc. etc.. Patient was encouraged to read the prescription insert and have coaching with their pharmacist and make an informed decision about taking medication and know that these medications are being prescribed with good intentions and we do not know how a patient would react to her medication. Sudden medications are FDA approved for weight loss and there is also off label use depending on patient's inability to afford medications in an attempt to lose weight D. Behavioral counseling was done to establish a relationship between food and an mood. Patient was provided information about local counseling including the office of Dr. Archuleta in [place] and Dr Cervantes at [facility]. We would like to cover regular topics and build on low glycemic eating exercise mindful eating, using yoga and meditation along with deep breathing and connecting with friends and family. E. Patient's current medications were reviewed and opinion was given on medication that can cause weight gain and can be substituted F. Patient was assessed for risk with obesity including and not limiting to atherosclerosis heart disease stroke kidney disease, restrictive lung disease, irritable bowel syndrome and overall mortality. Risk of developing prediabetes diabetes and metabolic syndrome was discussed G. Therapeutic plan: We have decided to make therapeutic plan which would include choosing wisely on calories restricting portion getting active, tracking weight, getting good quality sleep and working on time management H. Patient will follow up in 4 weeks for weight management Total time spent today was 60 minutes of which greater than 50% was spent on coordinating and counseling All questions have been answered to patient's satisfaction. Patient verbalized understanding of diagnosis and treatments explained. Advised to call sooner prior to next visit it any questions/concerns arise. Case discussed with Darci YA who reviewed the assessment and plan. Chart, medications, labs, vital signs reviewed. Dictation was accomplished with the use of Tastemade voice recognition software, which is prone to medical misidentifications and grammatical errors. This are unintentional and the practitioner does try to identify and correct these, but some could still be present. Please do not hesitate to contact practitioner for clarification. 08/12/2024 Obesity, morbid, BMI 40.0-49.9 (ICD-10 - E66.01) Clau is a pleasant 39-year-old female who presents to the office today for a weight management consult. 08/12/2024: BMI 41.47, weight 219.5 we discussed supplements at the patient may benefit from including probiotic, cortisol manager etl, HPA adapt. Additionally discussed make injection benefits, patient would like to hold off for now until her lab work is completed for review. Additionally patient is not interested in weight loss medications at this time, however may reconsider in the future. Patient has been found to be obese with a BMI of 41.47. We spent a lot of time discussing the relationship between food, exercise, sleep, mental health and obesity. Patient was counseled on the importance EATING local, organic food when possible. Patient was educated on clean 15 and dirty dozen. I provided information about reading books called The Food Rules by Blake Boothe and Eat Fat Get Lean by Dr Misbah Spear. Self education is important in the journey for weight management. Patient was offered diagnostic testing. We want to measure visceral adiposity, advanced body composition, adverse lipids, fatty acid balance, risk for heart disease and atherosclerosis, markers of inflammation and genetic susceptibility. Patient was counseled on weight management and was advised to lose weight using A. Meal Replacement Products Patient was educated on the replacement products called optifast. This is a good way of taking fixed amount of calories. It has been shown in studies to be ineffective weight management tool. This however has to be coupled with lifestyle intervention as well as laboratory data and EKG monitoring. It is impossible to know how a person will tolerate complete meal replacement. The side effects of meal replacement and weight loss could include syncopal attacks, dizziness, gallstones, potential cholecystectomy, possible heart attack and even . The benefits of meal replacement would be potential weight loss but no guarantees can be made. Meal replacement products are not covered by insurance. Once the patient has bought these products we cannot return them B. Lifestyle management which includes several strategies as below 1. Eat a low carbohydrate good fat good protein diet. Eliminate refined carbohydrates from the diet. Continue blood sugar and sugared beverages. Eat local organic when possible. Cook your own meals. Read food labels. None about healthy snacks. Portion control and food with low glycemic index 2. Exercise regularly. Try to get at least 6000 steps a day. Use a predominant to track activity level. Consider using apps like Cargo.io, Xenaptopal, lose it, stick as needed for self-monitoring and weight management. Consider group exercises. Consider hiring a production trainer. Regular exercise is spear to sustainable health and prevents as a buffer against weight regain 3. Sleep is most important for healing. Tried to sleep at least 8 hours a night. A good quality sleep needs a sleep ritual with ideal room temperature of around 68. It might help to take a shower and have no electronics in the room and sleep in a very dark room without artificial light. Start her sleep routine and get up early in the morning and go to bed on time 4. Make a social connection. Surround yourself with positive people with positive energy. Connect with friends and family. 5. Get into the habit of meditating and mindfulness while doing everything. 6. Go outside and connect with nature. C. Prescription medications Patient was educated on the use of prescription medications for medical weight loss. This is a growing list and includes phentermine, Topamax,Qsymia, contrave, belviq and saxenda. All prescription medications could have side effects including but not limited to kidney stones seizure disorder cardiac arrhythmias heart attack pancreatitis etc. etc.. Patient was encouraged to read the prescription insert and have coaching with their pharmacist and make an informed decision about taking medication and know that these medications are being prescribed with good intentions and we do not know how a patient would react to her medication. Sudden medications are FDA approved for weight loss and there is also off label use depending on patient's inability to afford medications in an attempt to lose weight D. Behavioral counseling was done to establish a relationship between food and an mood. Patient was provided information about local counseling including the office of Dr. Archuleta in [place] and Dr Cervantes at [facility]. We would like to cover regular topics and build on low glycemic eating exercise mindful eating, using yoga and meditation along with deep breathing and connecting with friends and family. E. Patient's current medications were reviewed and opinion was given on medication that can cause weight gain and can be substituted F. Patient was assessed for risk with obesity including and not limiting to atherosclerosis heart disease stroke kidney disease, restrictive lung disease, irritable bowel syndrome and overall mortality. Risk of developing prediabetes diabetes and metabolic syndrome was discussed G. Therapeutic plan: We have decided to make therapeutic plan which would include choosing wisely on calories restricting portion getting active, tracking weight, getting good quality sleep and working on time management H. Patient will follow up in 4 weeks for weight management Total time spent today was 60 minutes of which greater than 50% was spent on coordinating and counseling All questions have been answered to patient's satisfaction. Patient verbalized understanding of diagnosis and treatments explained. Advised to call sooner prior to next visit it any questions/concerns arise. Case discussed with Darci YA who reviewed the assessment and plan. Chart, medications, labs, vital signs reviewed. Dictation was accomplished with the use of Tastemade voice recognition software, which is prone to medical misidentifications and grammatical errors. This are unintentional and the practitioner does try to identify and correct these, but some could still be present. Please do not hesitate to contact practitioner for clarification. 08/13/2024 Adult general medical exam (ICD-10 - Z00.00) Clau is a pleasant 38-year-old female who presents to the office today for a CPE. #Seasonal allergies: Currently controlled #Dermatology referral: Patient requesting dermatology referral, large skin tag or keratoses appreciated on the lumbar region of the patient's back. #Weight gain: Follows with weight managament #Gestational diabetes: Patient does have a history of gestational diabetes, resolved. #Anxiety: Currently on no medications, PHQ-9:0 #Numbness and tingling: Suspected carpal tunnel within right upper extremity due to duration of symptoms, right upper extremity EMG will be ordered to further assess this. In regards to intermittent swelling, there is no concern for a blood clot at this time as the swelling does subside, does not occur daily, is intermittent and subsides after ice rolling the area. Suspected nerve inflammation due to tingling appreciated when median and ulnar nerve are compressed within the right upper extremity. #Snoring: Pulmonology referral for sleep study will be placed today for further assessment #Hypertriglyceridemia : Patient advised to take fish oil #Prediabetes: Patient advised to complete lifestyle changes, pay attention to a diabetic diet within the next 3 months. Will reevaluate patient's hemoglobin A1c at follow-up visit. Patient advised that if the hemoglobin A1c continues to rise, we will have to discuss medications Physical Women Patient seen and examined. Comprehensive discussion was done on the following. 1. Nutrition: It is important to follow a healthy diet based on lots of vegetables and legumes and good fat. Avoid processed food and processed carbohydrates. Learn to prepare your own meals. Learn to read labels and avoid high fructose corn syrup, processed chemicals added to increase shelf life and preprepared meals. Avoid fast foods. Learn to eat slowly and plan meals for a week. Try to count calories and be mindful off daily calorie intake. Get into the habit of keeping an eye on your weight by using an appropriate scale. Learn to log exercise and discussed fitness Apps like FriendFit which can help keep log off calories taken versus calories burned. Local food should be preferred. Discussed Dirty Dozen Versus Clean Fifteen. Discussed healthy supplements like fish oil, Tumeric, Curcumin, Melatonin, Resveratrol, Probiotics, Vitamin-D, Alpha-Lipoic acid, Vitamin-D and coconut oil. 2. It is important to exercise regularly. Is a good habit to walk at least 30-45 minutes a day. Gentle weightlifting with standard precautions to protect the back. Finding activity like cycling or hiking and get into the habit of engaging in it. Stretching before and after the exercises important. It is also important to contact me if there are any problems like shortness of breath, chest pain, back pain and joint or muscle pain associated with the exercise. 3. Discussed age appropriate screening guidelines. Colonoscopy needs to start at age 50 with stool for occult blood as appropriate. There is a new test that can test for genetic abnormalities in the stool sample. This would not replace a colonoscopy but could be used as a screening tool for patients who do not want a colonoscopy. We discussed the importance of early detection of colon cancer. 4. Discussed current guidelines with respect to breast examination, mammogram and pap smear for early detection of breast and cervical cancer. Patient advised to follow up with these appointments. 5. Discussed safe driving and no use of smart phone while driving 6. Age-appropriate immunizations were discussed. A tetanus booster is needed every 10 years. Flu vaccine is recommended every year just before the start of the flu season. Shingles vaccine is recommended after age 50 but not all insurances cover it. Pneumonia vaccine is given after age 65 unless there are certain comorbidities for which it is started earlier. 7. Diagnostic labs were discussed. These could include CBC CMP and lipids with fasting blood glucose and insulin levels. Vitamin D and hemoglobin A1c testing might be appropriate. All questions have been answered to patient's satisfaction. Patient verbalized understanding of diagnosis and treatments explained. Advised to call sooner prior to next visit it any questions/concerns arise. Case discussed with Darci YA who reviewed the assessment and plan. Chart, medications, labs, vital signs reviewed. Dictation was accomplished with the use of Tastemade voice recognition software, which is prone to medical misidentifications and grammatical errors. This are unintentional and the practitioner does try to identify and correct these, but some could still be present. Please do not hesitate to contact practitioner for clarification. 08/13/2024 Weight gain (ICD-10 - R63.5) Clau is a pleasant 38-year-old female who presents to the office today for a CPE. #Seasonal allergies: Currently controlled #Dermatology referral: Patient requesting dermatology referral, large skin tag or keratoses appreciated on the lumbar region of the patient's back. #Weight gain: Follows with weight managament #Gestational diabetes: Patient does have a history of gestational diabetes, resolved. #Anxiety: Currently on no medications, PHQ-9:0 #Numbness and tingling: Suspected carpal tunnel within right upper extremity due to duration of symptoms, right upper extremity EMG will be ordered to further assess this. In regards to intermittent swelling, there is no concern for a blood clot at this time as the swelling does subside, does not occur daily, is intermittent and subsides after ice rolling the area. Suspected nerve inflammation due to tingling appreciated when median and ulnar nerve are compressed within the right upper extremity. #Snoring: Pulmonology referral for sleep study will be placed today for further assessment #Hypertriglyceridemia : Patient advised to take fish oil #Prediabetes: Patient advised to complete lifestyle changes, pay attention to a diabetic diet within the next 3 months. Will reevaluate patient's hemoglobin A1c at follow-up visit. Patient advised that if the hemoglobin A1c continues to rise, we will have to discuss medications Physical Women Patient seen and examined. Comprehensive discussion was done on the following. 1. Nutrition: It is important to follow a healthy diet based on lots of vegetables and legumes and good fat. Avoid processed food and processed carbohydrates. Learn to prepare your own meals. Learn to read labels and avoid high fructose corn syrup, processed chemicals added to increase shelf life and preprepared meals. Avoid fast foods. Learn to eat slowly and plan meals for a week. Try to count calories and be mindful off daily calorie intake. Get into the habit of keeping an eye on your weight by using an appropriate scale. Learn to log exercise and discussed fitness Apps like FriendFit which can help keep log off calories taken versus calories burned. Local food should be preferred. Discussed Dirty Dozen Versus Clean Fifteen. Discussed healthy supplements like fish oil, Tumeric, Curcumin, Melatonin, Resveratrol, Probiotics, Vitamin-D, Alpha-Lipoic acid, Vitamin-D and coconut oil. 2. It is important to exercise regularly. Is a good habit to walk at least 30-45 minutes a day. Gentle weightlifting with standard precautions to protect the back. Finding activity like cycling or hiking and get into the habit of engaging in it. Stretching before and after the exercises important. It is also important to contact me if there are any problems like shortness of breath, chest pain, back pain and joint or muscle pain associated with the exercise. 3. Discussed age appropriate screening guidelines. Colonoscopy needs to start at age 50 with stool for occult blood as appropriate. There is a new test that can test for genetic abnormalities in the stool sample. This would not replace a colonoscopy but could be used as a screening tool for patients who do not want a colonoscopy. We discussed the importance of early detection of colon cancer. 4. Discussed current guidelines with respect to breast examination, mammogram and pap smear for early detection of breast and cervical cancer. Patient advised to follow up with these appointments. 5. Discussed safe driving and no use of smart phone while driving 6. Age-appropriate immunizations were discussed. A tetanus booster is needed every 10 years. Flu vaccine is recommended every year just before the start of the flu season. Shingles vaccine is recommended after age 50 but not all insurances cover it. Pneumonia vaccine is given after age 65 unless there are certain comorbidities for which it is started earlier. 7. Diagnostic labs were discussed. These could include CBC CMP and lipids with fasting blood glucose and insulin levels. Vitamin D and hemoglobin A1c testing might be appropriate. All questions have been answered to patient's satisfaction. Patient verbalized understanding of diagnosis and treatments explained. Advised to call sooner prior to next visit it any questions/concerns arise. Case discussed with Darci YA who reviewed the assessment and plan. Chart, medications, labs, vital signs reviewed. Dictation was accomplished with the use of Tastemade voice recognition software, which is prone to medical misidentifications and grammatical errors. This are unintentional and the practitioner does try to identify and correct these, but some could still be present. Please do not hesitate to contact practitioner for clarification. 08/13/2024 Tingling (ICD-10 - R20.2) 09/14/2024 BMI 40.0-44.9, adult (ICD-10 - Z68.41) Clau is a pleasant 39-year-old female who presents to the office today for a weight management consult. 08/12/2024: BMI 41.47, weight 219.5 we discussed supplements at the patient may benefit from including probiotic, cortisol manager etl, HPA adapt. Additionally discussed make injection benefits, patient would like to hold off for now until her lab work is completed for review. Additionally patient is not interested in weight loss medications at this time, however may reconsider in the future. 09/14/2024: BMI 40.34, weight 213.5 consider additional make injection at follow-up. Continue lifestyle changes, patient congratulated on her efforts. Patient has been found to be obese with a BMI of 41.47. We spent a lot of time discussing the relationship between food, exercise, sleep, mental health and obesity. Patient was counseled on the importance EATING local, organic food when possible. Patient was educated on clean 15 and dirty dozen. I provided information about reading books called The Food Rules by Blake Boothe and Eat Fat Get Lean by Dr Misbah Spear. Self education is important in the journey for weight management. Patient was offered diagnostic testing. We want to measure visceral adiposity, advanced body composition, adverse lipids, fatty acid balance, risk for heart disease and atherosclerosis, markers of inflammation and genetic susceptibility. Patient was counseled on weight management and was advised to lose weight using A. Meal Replacement Products Patient was educated on the replacement products called optifast. This is a good way of taking fixed amount of calories. It has been shown in studies to be ineffective weight management tool. This however has to be coupled with lifestyle intervention as well as laboratory data and EKG monitoring. It is impossible to know how a person will tolerate complete meal replacement. The side effects of meal replacement and weight loss could include syncopal attacks, dizziness, gallstones, potential cholecystectomy, possible heart attack and even . The benefits of meal replacement would be potential weight loss but no guarantees can be made. Meal replacement products are not covered by insurance. Once the patient has bought these products we cannot return them B. Lifestyle management which includes several strategies as below 1. Eat a low carbohydrate good fat good protein diet. Eliminate refined carbohydrates from the diet. Continue blood sugar and sugared beverages. Eat local organic when possible. Cook your own meals. Read food labels. None about healthy snacks. Portion control and food with low glycemic index 2. Exercise regularly. Try to get at least 6000 steps a day. Use a predominant to track activity level. Consider using apps like Cargo.io, Xenaptopal, lose it, stick as needed for self-monitoring and weight management. Consider group exercises. Consider hiring a production trainer. Regular exercise is spear to sustainable health and prevents as a buffer against weight regain 3. Sleep is most important for healing. Tried to sleep at least 8 hours a night. A good quality sleep needs a sleep ritual with ideal room temperature of around 68. It might help to take a shower and have no electronics in the room and sleep in a very dark room without artificial light. Start her sleep routine and get up early in the morning and go to bed on time 4. Make a social connection. Surround yourself with positive people with positive energy. Connect with friends and family. 5. Get into the habit of meditating and mindfulness while doing everything. 6. Go outside and connect with nature. C. Prescription medications Patient was educated on the use of prescription medications for medical weight loss. This is a growing list and includes phentermine, Topamax,Qsymia, contrave, belviq and saxenda. All prescription medications could have side effects including but not limited to kidney stones seizure disorder cardiac arrhythmias heart attack pancreatitis etc. etc.. Patient was encouraged to read the prescription insert and have coaching with their pharmacist and make an informed decision about taking medication and know that these medications are being prescribed with good intentions and we do not know how a patient would react to her medication. Sudden medications are FDA approved for weight loss and there is also off label use depending on patient's inability to afford medications in an attempt to lose weight D. Behavioral counseling was done to establish a relationship between food and an mood. Patient was provided information about local counseling including the office of Dr. Archuleta in [place] and Dr Cervantes at [facility]. We would like to cover regular topics and build on low glycemic eating exercise mindful eating, using yoga and meditation along with deep breathing and connecting with friends and family. E. Patient's current medications were reviewed and opinion was given on medication that can cause weight gain and can be substituted F. Patient was assessed for risk with obesity including and not limiting to atherosclerosis heart disease stroke kidney disease, restrictive lung disease, irritable bowel syndrome and overall mortality. Risk of developing prediabetes diabetes and metabolic syndrome was discussed G. Therapeutic plan: We have decided to make therapeutic plan which would include choosing wisely on calories restricting portion getting active, tracking weight, getting good quality sleep and working on time management H. Patient will follow up in 4 weeks for weight management Total time spent today was 60 minutes of which greater than 50% was spent on coordinating and counseling All questions have been answered to patient's satisfaction. Patient verbalized understanding of diagnosis and treatments explained. Advised to call sooner prior to next visit it any questions/concerns arise. Case discussed with Darci YA who reviewed the assessment and plan. Chart, medications, labs, vital signs reviewed. Dictation was accomplished with the use of Tastemade voice recognition software, which is prone to medical misidentifications and grammatical errors. This are unintentional and the practitioner does try to identify and correct these, but some could still be present. Please do not hesitate to contact practitioner for clarification. 10/14/2024 BMI 39.0-39.9,adult (ICD-10 - Z68.39) Clau is a pleasant 39-year-old female who presents to the office today for a weight management consult. 08/12/2024: BMI 41.47, weight 219.5 we discussed supplements at the patient may benefit from including probiotic, cortisol manager etl, HPA adapt. Additionally discussed make injection benefits, patient would like to hold off for now until her lab work is completed for review. Additionally patient is not interested in weight loss medications at this time, however may reconsider in the future. 09/14/2024: BMI 40.34, weight 213.5 consider additional make injection at follow-up. Continue lifestyle changes, patient congratulated on her efforts. 10/14/24: BMI 39.81, weight 210.7 continue lifestyle changes. #Bowel movements: Continue taking probiotics Patient has been found to be obese with a BMI of 41.47. We spent a lot of time discussing the relationship between food, exercise, sleep, mental health and obesity. Patient was counseled on the importance EATING local, organic food when possible. Patient was educated on clean 15 and dirty dozen. I provided information about reading books called The Food Rules by Blake Boothe and Eat Fat Get Lean by Dr Misbah Spear. Self education is important in the journey for weight management. Patient was offered diagnostic testing. We want to measure visceral adiposity, advanced body composition, adverse lipids, fatty acid balance, risk for heart disease and atherosclerosis, markers of inflammation and genetic susceptibility. Patient was counseled on weight management and was advised to lose weight using A. Meal Replacement Products Patient was educated on the replacement products called optifast. This is a good way of taking fixed amount of calories. It has been shown in studies to be ineffective weight management tool. This however has to be coupled with lifestyle intervention as well as laboratory data and EKG monitoring. It is impossible to know how a person will tolerate complete meal replacement. The side effects of meal replacement and weight loss could include syncopal attacks, dizziness, gallstones, potential cholecystectomy, possible heart attack and even . The benefits of meal replacement would be potential weight loss but no guarantees can be made. Meal replacement products are not covered by insurance. Once the patient has bought these products we cannot return them B. Lifestyle management which includes several strategies as below 1. Eat a low carbohydrate good fat good protein diet. Eliminate refined carbohydrates from the diet. Continue blood sugar and sugared beverages. Eat local organic when possible. Cook your own meals. Read food labels. None about healthy snacks. Portion control and food with low glycemic index 2. Exercise regularly. Try to get at least 6000 steps a day. Use a predominant to track activity level. Consider using apps like Cargo.io, Xenaptopal, lose it, stick as needed for self-monitoring and weight management. Consider group exercises. Consider hiring a production trainer. Regular exercise is spear to sustainable health and prevents as a buffer against weight regain 3. Sleep is most important for healing. Tried to sleep at least 8 hours a night. A good quality sleep needs a sleep ritual with ideal room temperature of around 68. It might help to take a shower and have no electronics in the room and sleep in a very dark room without artificial light. Start her sleep routine and get up early in the morning and go to bed on time 4. Make a social connection. Surround yourself with positive people with positive energy. Connect with friends and family. 5. Get into the habit of meditating and mindfulness while doing everything. 6. Go outside and connect with nature. C. Prescription medications Patient was educated on the use of prescription medications for medical weight loss. This is a growing list and includes phentermine, Topamax,Qsymia, contrave, belviq and saxenda. All prescription medications could have side effects including but not limited to kidney stones seizure disorder cardiac arrhythmias heart attack pancreatitis etc. etc.. Patient was encouraged to read the prescription insert and have coaching with their pharmacist and make an informed decision about taking medication and know that these medications are being prescribed with good intentions and we do not know how a patient would react to her medication. Sudden medications are FDA approved for weight loss and there is also off label use depending on patient's inability to afford medications in an attempt to lose weight D. Behavioral counseling was done to establish a relationship between food and an mood. Patient was provided information about local counseling including the office of Dr. Archuleta in [place] and Dr Cervantes at [facility]. We would like to cover regular topics and build on low glycemic eating exercise mindful eating, using yoga and meditation along with deep breathing and connecting with friends and family. E. Patient's current medications were reviewed and opinion was given on medication that can cause weight gain and can be substituted F. Patient was assessed for risk with obesity including and not limiting to atherosclerosis heart disease stroke kidney disease, restrictive lung disease, irritable bowel syndrome and overall mortality. Risk of developing prediabetes diabetes and metabolic syndrome was discussed G. Therapeutic plan: We have decided to make therapeutic plan which would include choosing wisely on calories restricting portion getting active, tracking weight, getting good quality sleep and working on time management H. Patient will follow up in 4 weeks for weight management Total time spent today was 60 minutes of which greater than 50% was spent on coordinating and counseling All questions have been answered to patient's satisfaction. Patient verbalized understanding of diagnosis and treatments explained. Advised to call sooner prior to next visit it any questions/concerns arise. Case discussed with Darci YA who reviewed the assessment and plan. Chart, medications, labs, vital signs reviewed. Dictation was accomplished with the use of Tastemade voice recognition software, which is prone to medical misidentifications and grammatical errors. This are unintentional and the practitioner does try to identify and correct these, but some could still be present. Please do not hesitate to contact practitioner for clarification. 10/14/2024 Severe obesity (BMI 35.0-39.9) with comorbidity (ICD-10 - E66.01) Clau is a pleasant 39-year-old female who presents to the office today for a weight management consult. 08/12/2024: BMI 41.47, weight 219.5 we discussed supplements at the patient may benefit from including probiotic, cortisol manager etl, HPA adapt. Additionally discussed make injection benefits, patient would like to hold off for now until her lab work is completed for review. Additionally patient is not interested in weight loss medications at this time, however may reconsider in the future. 09/14/2024: BMI 40.34, weight 213.5 consider additional make injection at follow-up. Continue lifestyle changes, patient congratulated on her efforts. 10/14/24: BMI 39.81, weight 210.7 continue lifestyle changes. #Bowel movements: Continue taking probiotics Patient has been found to be obese with a BMI of 41.47. We spent a lot of time discussing the relationship between food, exercise, sleep, mental health and obesity. Patient was counseled on the importance EATING local, organic food when possible. Patient was educated on clean 15 and dirty dozen. I provided information about reading books called The Food Rules by Blake Boothe and Eat Fat Get Lean by Dr Misbah Spear. Self education is important in the journey for weight management. Patient was offered diagnostic testing. We want to measure visceral adiposity, advanced body composition, adverse lipids, fatty acid balance, risk for heart disease and atherosclerosis, markers of inflammation and genetic susceptibility. Patient was counseled on weight management and was advised to lose weight using A. Meal Replacement Products Patient was educated on the replacement products called optifast. This is a good way of taking fixed amount of calories. It has been shown in studies to be ineffective weight management tool. This however has to be coupled with lifestyle intervention as well as laboratory data and EKG monitoring. It is impossible to know how a person will tolerate complete meal replacement. The side effects of meal replacement and weight loss could include syncopal attacks, dizziness, gallstones, potential cholecystectomy, possible heart attack and even . The benefits of meal replacement would be potential weight loss but no guarantees can be made. Meal replacement products are not covered by insurance. Once the patient has bought these products we cannot return them B. Lifestyle management which includes several strategies as below 1. Eat a low carbohydrate good fat good protein diet. Eliminate refined carbohydrates from the diet. Continue blood sugar and sugared beverages. Eat local organic when possible. Cook your own meals. Read food labels. None about healthy snacks. Portion control and food with low glycemic index 2. Exercise regularly. Try to get at least 6000 steps a day. Use a predominant to track activity level. Consider using apps like Cargo.io, Xenaptopal, lose it, stick as needed for self-monitoring and weight management. Consider group exercises. Consider hiring a production trainer. Regular exercise is spear to sustainable health and prevents as a buffer against weight regain 3. Sleep is most important for healing. Tried to sleep at least 8 hours a night. A good quality sleep needs a sleep ritual with ideal room temperature of around 68. It might help to take a shower and have no electronics in the room and sleep in a very dark room without artificial light. Start her sleep routine and get up early in the morning and go to bed on time 4. Make a social connection. Surround yourself with positive people with positive energy. Connect with friends and family. 5. Get into the habit of meditating and mindfulness while doing everything. 6. Go outside and connect with nature. C. Prescription medications Patient was educated on the use of prescription medications for medical weight loss. This is a growing list and includes phentermine, Topamax,Qsymia, contrave, belviq and saxenda. All prescription medications could have side effects including but not limited to kidney stones seizure disorder cardiac arrhythmias heart attack pancreatitis etc. etc.. Patient was encouraged to read the prescription insert and have coaching with their pharmacist and make an informed decision about taking medication and know that these medications are being prescribed with good intentions and we do not know how a patient would react to her medication. Sudden medications are FDA approved for weight loss and there is also off label use depending on patient's inability to afford medications in an attempt to lose weight D. Behavioral counseling was done to establish a relationship between food and an mood. Patient was provided information about local counseling including the office of Dr. Archuleta in [place] and Dr Cervantes at [facility]. We would like to cover regular topics and build on low glycemic eating exercise mindful eating, using yoga and meditation along with deep breathing and connecting with friends and family. E. Patient's current medications were reviewed and opinion was given on medication that can cause weight gain and can be substituted F. Patient was assessed for risk with obesity including and not limiting to atherosclerosis heart disease stroke kidney disease, restrictive lung disease, irritable bowel syndrome and overall mortality. Risk of developing prediabetes diabetes and metabolic syndrome was discussed G. Therapeutic plan: We have decided to make therapeutic plan which would include choosing wisely on calories restricting portion getting active, tracking weight, getting good quality sleep and working on time management H. Patient will follow up in 4 weeks for weight management Total time spent today was 60 minutes of which greater than 50% was spent on coordinating and counseling All questions have been answered to patient's satisfaction. Patient verbalized understanding of diagnosis and treatments explained. Advised to call sooner prior to next visit it any questions/concerns arise. Case discussed with Darci YA who reviewed the assessment and plan. Chart, medications, labs, vital signs reviewed. Dictation was accomplished with the use of Tastemade voice recognition software, which is prone to medical misidentifications and grammatical errors. This are unintentional and the practitioner does try to identify and correct these, but some could still be present. Please do not hesitate to contact practitioner for clarification. 11/08/2024 Prediabetes (ICD-10 - R73.03) Clau is a pleasant 38-year-old female who presents to the office today for a follow up... #Seasonal allergies: Currently controlled #Dermatology referral: Saw Derm a few weeks ago, there were no abnormalities noted per patient. Was seen at [facility]. #Weight gain: Follows with weight managament #Gestational diabetes: Patient does have a history of gestational diabetes, resolved. #Numbness and tingling: Suspected carpal tunnel within right upper extremity due to duration of symptoms, right upper extremity EMG will be ordered to further assess this. In regards to intermittent swelling, there is no concern for a blood clot at this time as the swelling does subside, does not occur daily, is intermittent and subsides after ice rolling the area. Suspected nerve inflammation due to tingling appreciated when median and ulnar nerve are compressed within the right upper extremity. Patient would like to hold off on surgery if this is an option after results are conducted due to having a young child at home still. We will discuss different management options such as splinting, icing when she has results back #Snoring: Pulmonology referral for sleep study will be placed today for further assessment #Hypertriglyceridemia : Patient advised to take fish oil #Prediabetes: Recent HA1C 5.7%. All questions have been answered to patient's satisfaction. Patient verbalized understanding of diagnosis and treatments explained. Advised to call sooner prior to next visit it any questions/concerns arise. Case discussed with Darci YA who reviewed the assessment and plan. Chart, medications, labs, vital signs reviewed. Dictation was accomplished with the use of Tastemade voice recognition software, which is prone to medical misidentifications and grammatical errors. This are unintentional and the practitioner does try to identify and correct these, but some could still be present. Please do not hesitate to contact practitioner for clarification. 11/08/2024 History of gestational diabetes (ICD-10 - Z86.32) Clau is a pleasant 38-year-old female who presents to the office today for a follow up... #Seasonal allergies: Currently controlled #Dermatology referral: Saw Derm a few weeks ago, there were no abnormalities noted per patient. Was seen at [facility]. #Weight gain: Follows with weight managament #Gestational diabetes: Patient does have a history of gestational diabetes, resolved. #Numbness and tingling: Suspected carpal tunnel within right upper extremity due to duration of symptoms, right upper extremity EMG will be ordered to further assess this. In regards to intermittent swelling, there is no concern for a blood clot at this time as the swelling does subside, does not occur daily, is intermittent and subsides after ice rolling the area. Suspected nerve inflammation due to tingling appreciated when median and ulnar nerve are compressed within the right upper extremity. Patient would like to hold off on surgery if this is an option after results are conducted due to having a young child at home still. We will discuss different management options such as splinting, icing when she has results back #Snoring: Pulmonology referral for sleep study will be placed today for further assessment #Hypertriglyceridemia : Patient advised to take fish oil #Prediabetes: Recent HA1C 5.7%. All questions have been answered to patient's satisfaction. Patient verbalized understanding of diagnosis and treatments explained. Advised to call sooner prior to next visit it any questions/concerns arise. Case discussed with Darci YA who reviewed the assessment and plan. Chart, medications, labs, vital signs reviewed. Dictation was accomplished with the use of Tastemade voice recognition software, which is prone to medical misidentifications and grammatical errors. This are unintentional and the practitioner does try to identify and correct these, but some could still be present. Please do not hesitate to contact practitioner for clarification. 11/26/2024 BMI 38.0-38.9,adult (ICD-10 - Z68.38) Clau is a pleasant 39-year-old female who presents to the office today for a weight management consult. 08/12/2024: BMI 41.47, weight 219.5 we discussed supplements at the patient may benefit from including probiotic, cortisol manager etl, HPA adapt. Additionally discussed make injection benefits, patient would like to hold off for now until her lab work is completed for review. Additionally patient is not interested in weight loss medications at this time, however may reconsider in the future. 09/14/2024: BMI 40.34, weight 213.5 consider additional make injection at follow-up. Continue lifestyle changes, patient congratulated on her efforts. 10/14/24: BMI 39.81, weight 210.7 continue lifestyle changes. #Bowel movements: Continue taking probiotics 11/26/2024: BMI 38.79, weight 205.3 continue with lifestyle changes, continue dietary supplement berberine #Creatine: Patient inquiring about creatine, I advised against this as this may impact kidney function. Patient in agreement. She will hold off on taking any supplementation at this time in regards to electrolytes or creatinine. She states that she is taking nectar electrolyte supplements consider rechecking kidney function at next appointment. Patient is here for weight management followup. We focused on significance of healthy lifestyle changes. We talked about need to track steps, work on portion control, read food labels, get adequate sleep, give adequate rest of the body, meditate, frequent nutritious meals including vegetables and healthy choices of meat and elimination of refined carbohydrates. We also talked about mindfulness and mindful eating. Particular focus was on lifestyle changes Total time spent was 30 minutes with greater than 50% spent on counseling and coordinating care All questions have been answered to patient's satisfaction. Patient verbalized understanding of diagnosis and treatments explained. Advised to call sooner prior to next visit it any questions/concerns arise. Case discussed with Darci YA who reviewed the assessment and plan. Chart, medications, labs, vital signs reviewed. Dictation was accomplished with the use of Tastemade voice recognition software, which is prone to medical misidentifications and grammatical errors. This are unintentional and the practitioner does try to identify and correct these, but some could still be present. Please do not hesitate to contact practitioner for clarification. 01/03/2025 BMI 38.0-38.9,adult (ICD-10 - Z68.38) Clau is a pleasant 39-year-old female who presents to the office today for a weight management consult. 08/12/2024: BMI 41.47, weight 219.5 we discussed supplements at the patient may benefit from including probiotic, cortisol manager etl, HPA adapt. Additionally discussed make injection benefits, patient would like to hold off for now until her lab work is completed for review. Additionally patient is not interested in weight loss medications at this time, however may reconsider in the future. 09/14/2024: BMI 40.34, weight 213.5 consider additional make injection at follow-up. Continue lifestyle changes, patient congratulated on her efforts. 10/14/24: BMI 39.81, weight 210.7 continue lifestyle changes. #Bowel movements: Continue taking probiotics 11/26/2024: BMI 38.79, weight 205.3 continue with lifestyle changes, continue dietary supplement berberine #Creatine: Patient inquiring about creatine, I advised against this as this may impact kidney function. Patient in agreement. She will hold off on taking any supplementation at this time in regards to electrolytes or creatinine. She states that she is taking nectar electrolyte supplements consider rechecking kidney function at next appointment. 01/03/2025: BMI 38.43, weight 203.4 MICC injection given today, continue berberine. Continue lifestyle changes, continue increasing water intake. Patient is here for weight management followup. We focused on significance of healthy lifestyle changes. We talked about need to track steps, work on portion control, read food labels, get adequate sleep, give adequate rest of the body, meditate, frequent nutritious meals including vegetables and healthy choices of meat and elimination of refined carbohydrates. We also talked about mindfulness and mindful eating. Particular focus was on lifestyle changes Total time spent was 30 minutes with greater than 50% spent on counseling and coordinating care All questions have been answered to patient's satisfaction. Patient verbalized understanding of diagnosis and treatments explained. Advised to call sooner prior to next visit it any questions/concerns arise. Case discussed with Darci YA who reviewed the assessment and plan. Chart, medications, labs, vital signs reviewed. Dictation was accomplished with the use of Tastemade voice recognition software, which is prone to medical misidentifications and grammatical errors. This are unintentional and the practitioner does try to identify and correct these, but some could still be present. Please do not hesitate to contact practitioner for clarification. 01/03/2025 Severe obesity (BMI 35.0-39.9) with comorbidity (ICD-10 - E66.01) Clau is a pleasant 39-year-old female who presents to the office today for a weight management consult. 08/12/2024: BMI 41.47, weight 219.5 we discussed supplements at the patient may benefit from including probiotic, cortisol manager etl, HPA adapt. Additionally discussed make injection benefits, patient would like to hold off for now until her lab work is completed for review. Additionally patient is not interested in weight loss medications at this time, however may reconsider in the future. 09/14/2024: BMI 40.34, weight 213.5 consider additional make injection at follow-up. Continue lifestyle changes, patient congratulated on her efforts. 10/14/24: BMI 39.81, weight 210.7 continue lifestyle changes. #Bowel movements: Continue taking probiotics 11/26/2024: BMI 38.79, weight 205.3 continue with lifestyle changes, continue dietary supplement berberine #Creatine: Patient inquiring about creatine, I advised against this as this may impact kidney function. Patient in agreement. She will hold off on taking any supplementation at this time in regards to electrolytes or creatinine. She states that she is taking nectar electrolyte supplements consider rechecking kidney function at next appointment. 01/03/2025: BMI 38.43, weight 203.4 MICC injection given today, continue berberine. Continue lifestyle changes, continue increasing water intake. Patient is here for weight management followup. We focused on significance of healthy lifestyle changes. We talked about need to track steps, work on portion control, read food labels, get adequate sleep, give adequate rest of the body, meditate, frequent nutritious meals including vegetables and healthy choices of meat and elimination of refined carbohydrates. We also talked about mindfulness and mindful eating. Particular focus was on lifestyle changes Total time spent was 30 minutes with greater than 50% spent on counseling and coordinating care All questions have been answered to patient's satisfaction. Patient verbalized understanding of diagnosis and treatments explained. Advised to call sooner prior to next visit it any questions/concerns arise. Case discussed with Darci YA who reviewed the assessment and plan. Chart, medications, labs, vital signs reviewed. Dictation was accomplished with the use of Tastemade voice recognition software, which is prone to medical misidentifications and grammatical errors. This are unintentional and the practitioner does try to identify and correct these, but some could still be present. Please do not hesitate to contact practitioner for clarification. 11/08/2024 Weight gain (ICD-10 - R63.5) Clau is a pleasant 38-year-old female who presents to the office today for a follow up... #Seasonal allergies: Currently controlled #Dermatology referral: Saw Derm a few weeks ago, there were no abnormalities noted per patient. Was seen at [facility]. #Weight gain: Follows with weight managament #Gestational diabetes: Patient does have a history of gestational diabetes, resolved. #Numbness and tingling: Suspected carpal tunnel within right upper extremity due to duration of symptoms, right upper extremity EMG will be ordered to further assess this. In regards to intermittent swelling, there is no concern for a blood clot at this time as the swelling does subside, does not occur daily, is intermittent and subsides after ice rolling the area. Suspected nerve inflammation due to tingling appreciated when median and ulnar nerve are compressed within the right upper extremity. Patient would like to hold off on surgery if this is an option after results are conducted due to having a young child at home still. We will discuss different management options such as splinting, icing when she has results back #Snoring: Pulmonology referral for sleep study will be placed today for further assessment #Hypertriglyceridemia : Patient advised to take fish oil #Prediabetes: Recent HA1C 5.7%. All questions have been answered to patient's satisfaction. Patient verbalized understanding of diagnosis and treatments explained. Advised to call sooner prior to next visit it any questions/concerns arise. Case discussed with Darci YA who reviewed the assessment and plan. Chart, medications, labs, vital signs reviewed. Dictation was accomplished with the use of T[employer]ade voice recognition software, which is prone to medical misidentifications and grammatical errors. This are unintentional and the practitioner does try to identify and correct these, but some could still be present. Please do not hesitate to contact practitioner for clarification. 11/26/2024 Dietary counseling and surveillance (ICD-10 - Z71.3) Clau is a pleasant 39-year-old female who presents to the office today for a weight management consult. 08/12/2024: BMI 41.47, weight 219.5 we discussed supplements at the patient may benefit from including probiotic, cortisol manager etl, HPA adapt. Additionally discussed make injection benefits, patient would like to hold off for now until her lab work is completed for review. Additionally patient is not interested in weight loss medications at this time, however may reconsider in the future. 09/14/2024: BMI 40.34, weight 213.5 consider additional make injection at follow-up. Continue lifestyle changes, patient congratulated on her efforts. 10/14/24: BMI 39.81, weight 210.7 continue lifestyle changes. #Bowel movements: Continue taking probiotics 11/26/2024: BMI 38.79, weight 205.3 continue with lifestyle changes, continue dietary supplement berberine #Creatine: Patient inquiring about creatine, I advised against this as this may impact kidney function. Patient in agreement. She will hold off on taking any supplementation at this time in regards to electrolytes or creatinine. She states that she is taking nectar electrolyte supplements consider rechecking kidney function at next appointment. Patient is here for weight management followup. We focused on significance of healthy lifestyle changes. We talked about need to track steps, work on portion control, read food labels, get adequate sleep, give adequate rest of the body, meditate, frequent nutritious meals including vegetables and healthy choices of meat and elimination of refined carbohydrates. We also talked about mindfulness and mindful eating. Particular focus was on lifestyle changes Total time spent was 30 minutes with greater than 50% spent on counseling and coordinating care All questions have been answered to patient's satisfaction. Patient verbalized understanding of diagnosis and treatments explained. Advised to call sooner prior to next visit it any questions/concerns arise. Case discussed with Darci YA who reviewed the assessment and plan. Chart, medications, labs, vital signs reviewed. Dictation was accomplished with the use of T[employer]emade voice recognition software, which is prone to medical misidentifications and grammatical errors. This are unintentional and the practitioner does try to identify and correct these, but some could still be present. Please do not hesitate to contact practitioner for clarification. 11/26/2024 Severe obesity (BMI 35.0-39.9) with comorbidity (ICD-10 - E66.01) Clau is a pleasant 39-year-old female who presents to the office today for a weight management consult. 08/12/2024: BMI 41.47, weight 219.5 we discussed supplements at the patient may benefit from including probiotic, cortisol manager etl, HPA adapt. Additionally discussed make injection benefits, patient would like to hold off for now until her lab work is completed for review. Additionally patient is not interested in weight loss medications at this time, however may reconsider in the future. 09/14/2024: BMI 40.34, weight 213.5 consider additional make injection at follow-up. Continue lifestyle changes, patient congratulated on her efforts. 10/14/24: BMI 39.81, weight 210.7 continue lifestyle changes. #Bowel movements: Continue taking probiotics 11/26/2024: BMI 38.79, weight 205.3 continue with lifestyle changes, continue dietary supplement berberine #Creatine: Patient inquiring about creatine, I advised against this as this may impact kidney function. Patient in agreement. She will hold off on taking any supplementation at this time in regards to electrolytes or creatinine. She states that she is taking nectar electrolyte supplements consider rechecking kidney function at next appointment. Patient is here for weight management followup. We focused on significance of healthy lifestyle changes. We talked about need to track steps, work on portion control, read food labels, get adequate sleep, give adequate rest of the body, meditate, frequent nutritious meals including vegetables and healthy choices of meat and elimination of refined carbohydrates. We also talked about mindfulness and mindful eating. Particular focus was on lifestyle changes Total time spent was 30 minutes with greater than 50% spent on counseling and coordinating care All questions have been answered to patient's satisfaction. Patient verbalized understanding of diagnosis and treatments explained. Advised to call sooner prior to next visit it any questions/concerns arise. Case discussed with Darci YA who reviewed the assessment and plan. Chart, medications, labs, vital signs reviewed. Dictation was accomplished with the use of T[employer]emade voice recognition software, which is prone to medical misidentifications and grammatical errors. This are unintentional and the practitioner does try to identify and correct these, but some could still be present. Please do not hesitate to contact practitioner for clarification. 10/14/2024 Weight gain (ICD-10 - R63.5) Clau is a pleasant 39-year-old female who presents to the office today for a weight management consult. 08/12/2024: BMI 41.47, weight 219.5 we discussed supplements at the patient may benefit from including probiotic, cortisol manager etl, HPA adapt. Additionally discussed make injection benefits, patient would like to hold off for now until her lab work is completed for review. Additionally patient is not interested in weight loss medications at this time, however may reconsider in the future. 09/14/2024: BMI 40.34, weight 213.5 consider additional make injection at follow-up. Continue lifestyle changes, patient congratulated on her efforts. 10/14/24: BMI 39.81, weight 210.7 continue lifestyle changes. #Bowel movements: Continue taking probiotics Patient has been found to be obese with a BMI of 41.47. We spent a lot of time discussing the relationship between food, exercise, sleep, mental health and obesity. Patient was counseled on the importance EATING local, organic food when possible. Patient was educated on clean 15 and dirty dozen. I provided information about reading books called The Food Rules by Blake Boothe and Eat Fat Get Lean by Dr Misbah Spear. Self education is important in the journey for weight management. Patient was offered diagnostic testing. We want to measure visceral adiposity, advanced body composition, adverse lipids, fatty acid balance, risk for heart disease and atherosclerosis, markers of inflammation and genetic susceptibility. Patient was counseled on weight management and was advised to lose weight using A. Meal Replacement Products Patient was educated on the replacement products called optifast. This is a good way of taking fixed amount of calories. It has been shown in studies to be ineffective weight management tool. This however has to be coupled with lifestyle intervention as well as laboratory data and EKG monitoring. It is impossible to know how a person will tolerate complete meal replacement. The side effects of meal replacement and weight loss could include syncopal attacks, dizziness, gallstones, potential cholecystectomy, possible heart attack and even . The benefits of meal replacement would be potential weight loss but no guarantees can be made. Meal replacement products are not covered by insurance. Once the patient has bought these products we cannot return them B. Lifestyle management which includes several strategies as below 1. Eat a low carbohydrate good fat good protein diet. Eliminate refined carbohydrates from the diet. Continue blood sugar and sugared beverages. Eat local organic when possible. Cook your own meals. Read food labels. None about healthy snacks. Portion control and food with low glycemic index 2. Exercise regularly. Try to get at least 6000 steps a day. Use a predominant to track activity level. Consider using apps like [employer], Xenaptopal, lose it, stick as needed for self-monitoring and weight management. Consider group exercises. Consider hiring a production trainer. Regular exercise is spear to sustainable health and prevents as a buffer against weight regain 3. Sleep is most important for healing. Tried to sleep at least 8 hours a night. A good quality sleep needs a sleep ritual with ideal room temperature of around 68. It might help to take a shower and have no electronics in the room and sleep in a very dark room without artificial light. Start her sleep routine and get up early in the morning and go to bed on time 4. Make a social connection. Surround yourself with positive people with positive energy. Connect with friends and family. 5. Get into the habit of meditating and mindfulness while doing everything. 6. Go outside and connect with nature. C. Prescription medications Patient was educated on the use of prescription medications for medical weight loss. This is a growing list and includes phentermine, Topamax,Qsymia, contrave, belviq and saxenda. All prescription medications could have side effects including but not limited to kidney stones seizure disorder cardiac arrhythmias heart attack pancreatitis etc. etc.. Patient was encouraged to read the prescription insert and have coaching with their pharmacist and make an informed decision about taking medication and know that these medications are being prescribed with good intentions and we do not know how a patient would react to her medication. Sudden medications are FDA approved for weight loss and there is also off label use depending on patient's inability to afford medications in an attempt to lose weight D. Behavioral counseling was done to establish a relationship between food and an mood. Patient was provided information about local counseling including the office of Dr. Archuleta in [place] and Dr Cervantes at [facility]. We would like to cover regular topics and build on low glycemic eating exercise mindful eating, using yoga and meditation along with deep breathing and connecting with friends and family. E. Patient's current medications were reviewed and opinion was given on medication that can cause weight gain and can be substituted F. Patient was assessed for risk with obesity including and not limiting to atherosclerosis heart disease stroke kidney disease, restrictive lung disease, irritable bowel syndrome and overall mortality. Risk of developing prediabetes diabetes and metabolic syndrome was discussed G. Therapeutic plan: We have decided to make therapeutic plan which would include choosing wisely on calories restricting portion getting active, tracking weight, getting good quality sleep and working on time management H. Patient will follow up in 4 weeks for weight management Total time spent today was 60 minutes of which greater than 50% was spent on coordinating and counseling All questions have been answered to patient's satisfaction. Patient verbalized understanding of diagnosis and treatments explained. Advised to call sooner prior to next visit it any questions/concerns arise. Case discussed with Darci YA who reviewed the assessment and plan. Chart, medications, labs, vital signs reviewed. Dictation was accomplished with the use of Tastemade voice recognition software, which is prone to medical misidentifications and grammatical errors. This are unintentional and the practitioner does try to identify and correct these, but some could still be present. Please do not hesitate to contact practitioner for clarification. 09/14/2024 Obesity, morbid, BMI 40.0-49.9 (ICD-10 - E66.01) Clau is a pleasant 39-year-old female who presents to the office today for a weight management consult. 08/12/2024: BMI 41.47, weight 219.5 we discussed supplements at the patient may benefit from including probiotic, cortisol manager etl, HPA adapt. Additionally discussed make injection benefits, patient would like to hold off for now until her lab work is completed for review. Additionally patient is not interested in weight loss medications at this time, however may reconsider in the future. 09/14/2024: BMI 40.34, weight 213.5 consider additional make injection at follow-up. Continue lifestyle changes, patient congratulated on her efforts. Patient has been found to be obese with a BMI of 41.47. We spent a lot of time discussing the relationship between food, exercise, sleep, mental health and obesity. Patient was counseled on the importance EATING local, organic food when possible. Patient was educated on clean 15 and dirty dozen. I provided information about reading books called The Food Rules by Blake Boothe and Eat Fat Get Lean by Dr Misbah Spear. Self education is important in the journey for weight management. Patient was offered diagnostic testing. We want to measure visceral adiposity, advanced body composition, adverse lipids, fatty acid balance, risk for heart disease and atherosclerosis, markers of inflammation and genetic susceptibility. Patient was counseled on weight management and was advised to lose weight using A. Meal Replacement Products Patient was educated on the replacement products called optifast. This is a good way of taking fixed amount of calories. It has been shown in studies to be ineffective weight management tool. This however has to be coupled with lifestyle intervention as well as laboratory data and EKG monitoring. It is impossible to know how a person will tolerate complete meal replacement. The side effects of meal replacement and weight loss could include syncopal attacks, dizziness, gallstones, potential cholecystectomy, possible heart attack and even . The benefits of meal replacement would be potential weight loss but no guarantees can be made. Meal replacement products are not covered by insurance. Once the patient has bought these products we cannot return them B. Lifestyle management which includes several strategies as below 1. Eat a low carbohydrate good fat good protein diet. Eliminate refined carbohydrates from the diet. Continue blood sugar and sugared beverages. Eat local organic when possible. Cook your own meals. Read food labels. None about healthy snacks. Portion control and food with low glycemic index 2. Exercise regularly. Try to get at least 6000 steps a day. Use a predominant to track activity level. Consider using apps like [employer] excercise, Xenaptopal, lose it, stick as needed for self-monitoring and weight management. Consider group exercises. Consider hiring a production trainer. Regular exercise is spear to sustainable health and prevents as a buffer against weight regain 3. Sleep is most important for healing. Tried to sleep at least 8 hours a night. A good quality sleep needs a sleep ritual with ideal room temperature of around 68. It might help to take a shower and have no electronics in the room and sleep in a very dark room without artificial light. Start her sleep routine and get up early in the morning and go to bed on time 4. Make a social connection. Surround yourself with positive people with positive energy. Connect with friends and family. 5. Get into the habit of meditating and mindfulness while doing everything. 6. Go outside and connect with nature. C. Prescription medications Patient was educated on the use of prescription medications for medical weight loss. This is a growing list and includes phentermine, Topamax,Qsymia, contrave, belviq and saxenda. All prescription medications could have side effects including but not limited to kidney stones seizure disorder cardiac arrhythmias heart attack pancreatitis etc. etc.. Patient was encouraged to read the prescription insert and have coaching with their pharmacist and make an informed decision about taking medication and know that these medications are being prescribed with good intentions and we do not know how a patient would react to her medication. Sudden medications are FDA approved for weight loss and there is also off label use depending on patient's inability to afford medications in an attempt to lose weight D. Behavioral counseling was done to establish a relationship between food and an mood. Patient was provided information about local counseling including the office of Dr. Archuleta in [place] and Dr Cervantes at [facility]. We would like to cover regular topics and build on low glycemic eating exercise mindful eating, using yoga and meditation along with deep breathing and connecting with friends and family. E. Patient's current medications were reviewed and opinion was given on medication that can cause weight gain and can be substituted F. Patient was assessed for risk with obesity including and not limiting to atherosclerosis heart disease stroke kidney disease, restrictive lung disease, irritable bowel syndrome and overall mortality. Risk of developing prediabetes diabetes and metabolic syndrome was discussed G. Therapeutic plan: We have decided to make therapeutic plan which would include choosing wisely on calories restricting portion getting active, tracking weight, getting good quality sleep and working on time management H. Patient will follow up in 4 weeks for weight management Total time spent today was 60 minutes of which greater than 50% was spent on coordinating and counseling All questions have been answered to patient's satisfaction. Patient verbalized understanding of diagnosis and treatments explained. Advised to call sooner prior to next visit it any questions/concerns arise. Case discussed with Darci YA who reviewed the assessment and plan. Chart, medications, labs, vital signs reviewed. Dictation was accomplished with the use of Tastemade voice recognition software, which is prone to medical misidentifications and grammatical errors. This are unintentional and the practitioner does try to identify and correct these, but some could still be present. Please do not hesitate to contact practitioner for clarification. 08/13/2024 Numbness (ICD-10 - R20.0) 08/13/2024 Seasonal allergies (ICD-10 - J30.2) Clau is a pleasant 38-year-old female who presents to the office today for a CPE. #Seasonal allergies: Currently controlled #Dermatology referral: Patient requesting dermatology referral, large skin tag or keratoses appreciated on the lumbar region of the patient's back. #Weight gain: Follows with weight managament #Gestational diabetes: Patient does have a history of gestational diabetes, resolved. #Anxiety: Currently on no medications, PHQ-9:0 #Numbness and tingling: Suspected carpal tunnel within right upper extremity due to duration of symptoms, right upper extremity EMG will be ordered to further assess this. In regards to intermittent swelling, there is no concern for a blood clot at this time as the swelling does subside, does not occur daily, is intermittent and subsides after ice rolling the area. Suspected nerve inflammation due to tingling appreciated when median and ulnar nerve are compressed within the right upper extremity. #Snoring: Pulmonology referral for sleep study will be placed today for further assessment #Hypertriglyceridemia : Patient advised to take fish oil #Prediabetes: Patient advised to complete lifestyle changes, pay attention to a diabetic diet within the next 3 months. Will reevaluate patient's hemoglobin A1c at follow-up visit. Patient advised that if the hemoglobin A1c continues to rise, we will have to discuss medications Physical Women Patient seen and examined. Comprehensive discussion was done on the following. 1. Nutrition: It is important to follow a healthy diet based on lots of vegetables and legumes and good fat. Avoid processed food and processed carbohydrates. Learn to prepare your own meals. Learn to read labels and avoid high fructose corn syrup, processed chemicals added to increase shelf life and preprepared meals. Avoid fast foods. Learn to eat slowly and plan meals for a week. Try to count calories and be mindful off daily calorie intake. Get into the habit of keeping an eye on your weight by using an appropriate scale. Learn to log exercise and discussed fitness Apps like FriendFit which can help keep log off calories taken versus calories burned. Local food should be preferred. Discussed Dirty Dozen Versus Clean Fifteen. Discussed healthy supplements like fish oil, Tumeric, Curcumin, Melatonin, Resveratrol, Probiotics, Vitamin-D, Alpha-Lipoic acid, Vitamin-D and coconut oil. 2. It is important to exercise regularly. Is a good habit to walk at least 30-45 minutes a day. Gentle weightlifting with standard precautions to protect the back. Finding activity like cycling or hiking and get into the habit of engaging in it. Stretching before and after the exercises important. It is also important to contact me if there are any problems like shortness of breath, chest pain, back pain and joint or muscle pain associated with the exercise. 3. Discussed age appropriate screening guidelines. Colonoscopy needs to start at age 50 with stool for occult blood as appropriate. There is a new test that can test for genetic abnormalities in the stool sample. This would not replace a colonoscopy but could be used as a screening tool for patients who do not want a colonoscopy. We discussed the importance of early detection of colon cancer. 4. Discussed current guidelines with respect to breast examination, mammogram and pap smear for early detection of breast and cervical cancer. Patient advised to follow up with these appointments. 5. Discussed safe driving and no use of smart phone while driving 6. Age-appropriate immunizations were discussed. A tetanus booster is needed every 10 years. Flu vaccine is recommended every year just before the start of the flu season. Shingles vaccine is recommended after age 50 but not all insurances cover it. Pneumonia vaccine is given after age 65 unless there are certain comorbidities for which it is started earlier. 7. Diagnostic labs were discussed. These could include CBC CMP and lipids with fasting blood glucose and insulin levels. Vitamin D and hemoglobin A1c testing might be appropriate. All questions have been answered to patient's satisfaction. Patient verbalized understanding of diagnosis and treatments explained. Advised to call sooner prior to next visit it any questions/concerns arise. Case discussed with Darci YA who reviewed the assessment and plan. Chart, medications, labs, vital signs reviewed. Dictation was accomplished with the use of Tastemade voice recognition software, which is prone to medical misidentifications and grammatical errors. This are unintentional and the practitioner does try to identify and correct these, but some could still be present. Please do not hesitate to contact practitioner for clarification. 08/12/2024 Weight gain (ICD-10 - R63.5) Clau is a pleasant 39-year-old female who presents to the office today for a weight management consult. 08/12/2024: BMI 41.47, weight 219.5 we discussed supplements at the patient may benefit from including probiotic, cortisol manager etl, HPA adapt. Additionally discussed make injection benefits, patient would like to hold off for now until her lab work is completed for review. Additionally patient is not interested in weight loss medications at this time, however may reconsider in the future. Patient has been found to be obese with a BMI of 41.47. We spent a lot of time discussing the relationship between food, exercise, sleep, mental health and obesity. Patient was counseled on the importance EATING local, organic food when possible. Patient was educated on clean 15 and dirty dozen. I provided information about reading books called The Food Rules by Blake Boothe and Eat Fat Get Lean by Dr Misbah Spear. Self education is important in the journey for weight management. Patient was offered diagnostic testing. We want to measure visceral adiposity, advanced body composition, adverse lipids, fatty acid balance, risk for heart disease and atherosclerosis, markers of inflammation and genetic susceptibility. Patient was counseled on weight management and was advised to lose weight using A. Meal Replacement Products Patient was educated on the replacement products called optifast. This is a good way of taking fixed amount of calories. It has been shown in studies to be ineffective weight management tool. This however has to be coupled with lifestyle intervention as well as laboratory data and EKG monitoring. It is impossible to know how a person will tolerate complete meal replacement. The side effects of meal replacement and weight loss could include syncopal attacks, dizziness, gallstones, potential cholecystectomy, possible heart attack and even . The benefits of meal replacement would be potential weight loss but no guarantees can be made. Meal replacement products are not covered by insurance. Once the patient has bought these products we cannot return them B. Lifestyle management which includes several strategies as below 1. Eat a low carbohydrate good fat good protein diet. Eliminate refined carbohydrates from the diet. Continue blood sugar and sugared beverages. Eat local organic when possible. Cook your own meals. Read food labels. None about healthy snacks. Portion control and food with low glycemic index 2. Exercise regularly. Try to get at least 6000 steps a day. Use a predominant to track activity level. Consider using apps like Cargo.io, Xenaptopal, lose it, stick as needed for self-monitoring and weight management. Consider group exercises. Consider hiring a production trainer. Regular exercise is spear to sustainable health and prevents as a buffer against weight regain 3. Sleep is most important for healing. Tried to sleep at least 8 hours a night. A good quality sleep needs a sleep ritual with ideal room temperature of around 68. It might help to take a shower and have no electronics in the room and sleep in a very dark room without artificial light. Start her sleep routine and get up early in the morning and go to bed on time 4. Make a social connection. Surround yourself with positive people with positive energy. Connect with friends and family. 5. Get into the habit of meditating and mindfulness while doing everything. 6. Go outside and connect with nature. C. Prescription medications Patient was educated on the use of prescription medications for medical weight loss. This is a growing list and includes phentermine, Topamax,Qsymia, contrave, belviq and saxenda. All prescription medications could have side effects including but not limited to kidney stones seizure disorder cardiac arrhythmias heart attack pancreatitis etc. etc.. Patient was encouraged to read the prescription insert and have coaching with their pharmacist and make an informed decision about taking medication and know that these medications are being prescribed with good intentions and we do not know how a patient would react to her medication. Sudden medications are FDA approved for weight loss and there is also off label use depending on patient's inability to afford medications in an attempt to lose weight D. Behavioral counseling was done to establish a relationship between food and an mood. Patient was provided information about local counseling including the office of Dr. Archuleta in [place] and Dr Cervantes at [facility]. We would like to cover regular topics and build on low glycemic eating exercise mindful eating, using yoga and meditation along with deep breathing and connecting with friends and family. E. Patient's current medications were reviewed and opinion was given on medication that can cause weight gain and can be substituted F. Patient was assessed for risk with obesity including and not limiting to atherosclerosis heart disease stroke kidney disease, restrictive lung disease, irritable bowel syndrome and overall mortality. Risk of developing prediabetes diabetes and metabolic syndrome was discussed G. Therapeutic plan: We have decided to make therapeutic plan which would include choosing wisely on calories restricting portion getting active, tracking weight, getting good quality sleep and working on time management H. Patient will follow up in 4 weeks for weight management Total time spent today was 60 minutes of which greater than 50% was spent on coordinating and counseling All questions have been answered to patient's satisfaction. Patient verbalized understanding of diagnosis and treatments explained. Advised to call sooner prior to next visit it any questions/concerns arise. Case discussed with Darci YA who reviewed the assessment and plan. Chart, medications, labs, vital signs reviewed. Dictation was accomplished with the use of Tastemade voice recognition software, which is prone to medical misidentifications and grammatical errors. This are unintentional and the practitioner does try to identify and correct these, but some could still be present. Please do not hesitate to contact practitioner for clarification. 07/06/2024 History of gestational diabetes (ICD-10 - Z86.32) Clau is a pleasant 38-year-old female who presents to the office today for new patient evaluation. Patient is welcomed to the practice. Medications, medical history, allergies, surgeries, hospitalizations, family history, and social history were reviewed. Problem list updated. Cardiopulmonary and abdominal exam unremarkable. Patient will follow-up in office. All patient questions answered at this time. #Seasonal allergies: Currently controlled #Weight gain: Patient given information on the way a weight management consultation works, we discussed lifestyle changes, protein intake and water intake today briefly. The patient is encouraged to set up a weight management consultation to have a formal discussion about weight gain, and healthier lifestyle choices. Additionally we will be ordering a full panel of lab work to ensure there are no hormonal abnormalities at this time contributing to the stubborn weight gain. #Gestational diabetes: Patient does have a history of gestational diabetes, resolved. #Anxiety: Currently on no medications, patient would benefit from PHQ-9 at physical exam. All questions have been answered to patient's satisfaction. Patient verbalized understanding of diagnosis and treatments explained. Advised to call sooner prior to next visit it any questions/concerns arise. Case discussed with Darci YA who reviewed the assessment and plan. Chart, medications, labs, vital signs reviewed. Dictation was accomplished with the use of Tastemade voice recognition software, which is prone to medical misidentifications and grammatical errors. This are unintentional and the practitioner does try to identify and correct these, but some could still be present. Please do not hesitate to contact practitioner for clarification. 08/12/2024 Dietary counseling and surveillance (ICD-10 - Z71.3) Clau is a pleasant 39-year-old female who presents to the office today for a weight management consult. 08/12/2024: BMI 41.47, weight 219.5 we discussed supplements at the patient may benefit from including probiotic, cortisol manager etl, HPA adapt. Additionally discussed make injection benefits, patient would like to hold off for now until her lab work is completed for review. Additionally patient is not interested in weight loss medications at this time, however may reconsider in the future. Patient has been found to be obese with a BMI of 41.47. We spent a lot of time discussing the relationship between food, exercise, sleep, mental health and obesity. Patient was counseled on the importance EATING local, organic food when possible. Patient was educated on clean 15 and dirty dozen. I provided information about reading books called The Food Rules by Blake Boothe and Eat Fat Get Lean by Dr Misbah Spear. Self education is important in the journey for weight management. Patient was offered diagnostic testing. We want to measure visceral adiposity, advanced body composition, adverse lipids, fatty acid balance, risk for heart disease and atherosclerosis, markers of inflammation and genetic susceptibility. Patient was counseled on weight management and was advised to lose weight using A. Meal Replacement Products Patient was educated on the replacement products called optifast. This is a good way of taking fixed amount of calories. It has been shown in studies to be ineffective weight management tool. This however has to be coupled with lifestyle intervention as well as laboratory data and EKG monitoring. It is impossible to know how a person will tolerate complete meal replacement. The side effects of meal replacement and weight loss could include syncopal attacks, dizziness, gallstones, potential cholecystectomy, possible heart attack and even . The benefits of meal replacement would be potential weight loss but no guarantees can be made. Meal replacement products are not covered by insurance. Once the patient has bought these products we cannot return them B. Lifestyle management which includes several strategies as below 1. Eat a low carbohydrate good fat good protein diet. Eliminate refined carbohydrates from the diet. Continue blood sugar and sugared beverages. Eat local organic when possible. Cook your own meals. Read food labels. None about healthy snacks. Portion control and food with low glycemic index 2. Exercise regularly. Try to get at least 6000 steps a day. Use a predominant to track activity level. Consider using apps like Cargo.io, myfitmakeenapal, lose it, stick as needed for self-monitoring and weight management. Consider group exercises. Consider hiring a production trainer. Regular exercise is spear to sustainable health and prevents as a buffer against weight regain 3. Sleep is most important for healing. Tried to sleep at least 8 hours a night. A good quality sleep needs a sleep ritual with ideal room temperature of around 68. It might help to take a shower and have no electronics in the room and sleep in a very dark room without artificial light. Start her sleep routine and get up early in the morning and go to bed on time 4. Make a social connection. Surround yourself with positive people with positive energy. Connect with friends and family. 5. Get into the habit of meditating and mindfulness while doing everything. 6. Go outside and connect with nature. C. Prescription medications Patient was educated on the use of prescription medications for medical weight loss. This is a growing list and includes phentermine, Topamax,Qsymia, contrave, belviq and saxenda. All prescription medications could have side effects including but not limited to kidney stones seizure disorder cardiac arrhythmias heart attack pancreatitis etc. etc.. Patient was encouraged to read the prescription insert and have coaching with their pharmacist and make an informed decision about taking medication and know that these medications are being prescribed with good intentions and we do not know how a patient would react to her medication. Sudden medications are FDA approved for weight loss and there is also off label use depending on patient's inability to afford medications in an attempt to lose weight D. Behavioral counseling was done to establish a relationship between food and an mood. Patient was provided information about local counseling including the office of Dr. Archuleta in [place] and Dr Cervantes at [facility]. We would like to cover regular topics and build on low glycemic eating exercise mindful eating, using yoga and meditation along with deep breathing and connecting with friends and family. E. Patient's current medications were reviewed and opinion was given on medication that can cause weight gain and can be substituted F. Patient was assessed for risk with obesity including and not limiting to atherosclerosis heart disease stroke kidney disease, restrictive lung disease, irritable bowel syndrome and overall mortality. Risk of developing prediabetes diabetes and metabolic syndrome was discussed G. Therapeutic plan: We have decided to make therapeutic plan which would include choosing wisely on calories restricting portion getting active, tracking weight, getting good quality sleep and working on time management H. Patient will follow up in 4 weeks for weight management Total time spent today was 60 minutes of which greater than 50% was spent on coordinating and counseling All questions have been answered to patient's satisfaction. Patient verbalized understanding of diagnosis and treatments explained. Advised to call sooner prior to next visit it any questions/concerns arise. Case discussed with Darci YA who reviewed the assessment and plan. Chart, medications, labs, vital signs reviewed. Dictation was accomplished with the use of Tastemade voice recognition software, which is prone to medical misidentifications and grammatical errors. This are unintentional and the practitioner does try to identify and correct these, but some could still be present. Please do not hesitate to contact practitioner for clarification. 08/13/2024 History of gestational diabetes (ICD-10 - Z86.32) Clau is a pleasant 38-year-old female who presents to the office today for a CPE. #Seasonal allergies: Currently controlled #Dermatology referral: Patient requesting dermatology referral, large skin tag or keratoses appreciated on the lumbar region of the patient's back. #Weight gain: Follows with weight managament #Gestational diabetes: Patient does have a history of gestational diabetes, resolved. #Anxiety: Currently on no medications, PHQ-9:0 #Numbness and tingling: Suspected carpal tunnel within right upper extremity due to duration of symptoms, right upper extremity EMG will be ordered to further assess this. In regards to intermittent swelling, there is no concern for a blood clot at this time as the swelling does subside, does not occur daily, is intermittent and subsides after ice rolling the area. Suspected nerve inflammation due to tingling appreciated when median and ulnar nerve are compressed within the right upper extremity. #Snoring: Pulmonology referral for sleep study will be placed today for further assessment #Hypertriglyceridemia : Patient advised to take fish oil #Prediabetes: Patient advised to complete lifestyle changes, pay attention to a diabetic diet within the next 3 months. Will reevaluate patient's hemoglobin A1c at follow-up visit. Patient advised that if the hemoglobin A1c continues to rise, we will have to discuss medications Physical Women Patient seen and examined. Comprehensive discussion was done on the following. 1. Nutrition: It is important to follow a healthy diet based on lots of vegetables and legumes and good fat. Avoid processed food and processed carbohydrates. Learn to prepare your own meals. Learn to read labels and avoid high fructose corn syrup, processed chemicals added to increase shelf life and preprepared meals. Avoid fast foods. Learn to eat slowly and plan meals for a week. Try to count calories and be mindful off daily calorie intake. Get into the habit of keeping an eye on your weight by using an appropriate scale. Learn to log exercise and discussed fitness Apps like FriendFit which can help keep log off calories taken versus calories burned. Local food should be preferred. Discussed Dirty Dozen Versus Clean Fifteen. Discussed healthy supplements like fish oil, Tumeric, Curcumin, Melatonin, Resveratrol, Probiotics, Vitamin-D, Alpha-Lipoic acid, Vitamin-D and coconut oil. 2. It is important to exercise regularly. Is a good habit to walk at least 30-45 minutes a day. Gentle weightlifting with standard precautions to protect the back. Finding activity like cycling or hiking and get into the habit of engaging in it. Stretching before and after the exercises important. It is also important to contact me if there are any problems like shortness of breath, chest pain, back pain and joint or muscle pain associated with the exercise. 3. Discussed age appropriate screening guidelines. Colonoscopy needs to start at age 50 with stool for occult blood as appropriate. There is a new test that can test for genetic abnormalities in the stool sample. This would not replace a colonoscopy but could be used as a screening tool for patients who do not want a colonoscopy. We discussed the importance of early detection of colon cancer. 4. Discussed current guidelines with respect to breast examination, mammogram and pap smear for early detection of breast and cervical cancer. Patient advised to follow up with these appointments. 5. Discussed safe driving and no use of smart phone while driving 6. Age-appropriate immunizations were discussed. A tetanus booster is needed every 10 years. Flu vaccine is recommended every year just before the start of the flu season. Shingles vaccine is recommended after age 50 but not all insurances cover it. Pneumonia vaccine is given after age 65 unless there are certain comorbidities for which it is started earlier. 7. Diagnostic labs were discussed. These could include CBC CMP and lipids with fasting blood glucose and insulin levels. Vitamin D and hemoglobin A1c testing might be appropriate. All questions have been answered to patient's satisfaction. Patient verbalized understanding of diagnosis and treatments explained. Advised to call sooner prior to next visit it any questions/concerns arise. Case discussed with Darci YA who reviewed the assessment and plan. Chart, medications, labs, vital signs reviewed. Dictation was accomplished with the use of Tastemade voice recognition software, which is prone to medical misidentifications and grammatical errors. This are unintentional and the practitioner does try to identify and correct these, but some could still be present. Please do not hesitate to contact practitioner for clarification. 07/06/2024 Anxiety (ICD-10 - F41.9) Clau is a pleasant 38-year-old female who presents to the office today for new patient evaluation. Patient is welcomed to the practice. Medications, medical history, allergies, surgeries, hospitalizations, family history, and social history were reviewed. Problem list updated. Cardiopulmonary and abdominal exam unremarkable. Patient will follow-up in office. All patient questions answered at this time. #Seasonal allergies: Currently controlled #Weight gain: Patient given information on the way a weight management consultation works, we discussed lifestyle changes, protein intake and water intake today briefly. The patient is encouraged to set up a weight management consultation to have a formal discussion about weight gain, and healthier lifestyle choices. Additionally we will be ordering a full panel of lab work to ensure there are no hormonal abnormalities at this time contributing to the stubborn weight gain. #Gestational diabetes: Patient does have a history of gestational diabetes, resolved. #Anxiety: Currently on no medications, patient would benefit from PHQ-9 at physical exam. All questions have been answered to patient's satisfaction. Patient verbalized understanding of diagnosis and treatments explained. Advised to call sooner prior to next visit it any questions/concerns arise. Case discussed with Darci YA who reviewed the assessment and plan. Chart, medications, labs, vital signs reviewed. Dictation was accomplished with the use of Tastemade voice recognition software, which is prone to medical misidentifications and grammatical errors. This are unintentional and the practitioner does try to identify and correct these, but some could still be present. Please do not hesitate to contact practitioner for clarification. 10/14/2024 Dietary counseling and surveillance (ICD-10 - Z71.3) Clau is a pleasant 39-year-old female who presents to the office today for a weight management consult. 08/12/2024: BMI 41.47, weight 219.5 we discussed supplements at the patient may benefit from including probiotic, cortisol manager etl, HPA adapt. Additionally discussed make injection benefits, patient would like to hold off for now until her lab work is completed for review. Additionally patient is not interested in weight loss medications at this time, however may reconsider in the future. 09/14/2024: BMI 40.34, weight 213.5 consider additional make injection at follow-up. Continue lifestyle changes, patient congratulated on her efforts. 10/14/24: BMI 39.81, weight 210.7 continue lifestyle changes. #Bowel movements: Continue taking probiotics Patient has been found to be obese with a BMI of 41.47. We spent a lot of time discussing the relationship between food, exercise, sleep, mental health and obesity. Patient was counseled on the importance EATING local, organic food when possible. Patient was educated on clean 15 and dirty dozen. I provided information about reading books called The Food Rules by Blake Boothe and Eat Fat Get Lean by Dr Misbah Spear. Self education is important in the journey for weight management. Patient was offered diagnostic testing. We want to measure visceral adiposity, advanced body composition, adverse lipids, fatty acid balance, risk for heart disease and atherosclerosis, markers of inflammation and genetic susceptibility. Patient was counseled on weight management and was advised to lose weight using A. Meal Replacement Products Patient was educated on the replacement products called optifast. This is a good way of taking fixed amount of calories. It has been shown in studies to be ineffective weight management tool. This however has to be coupled with lifestyle intervention as well as laboratory data and EKG monitoring. It is impossible to know how a person will tolerate complete meal replacement. The side effects of meal replacement and weight loss could include syncopal attacks, dizziness, gallstones, potential cholecystectomy, possible heart attack and even . The benefits of meal replacement would be potential weight loss but no guarantees can be made. Meal replacement products are not covered by insurance. Once the patient has bought these products we cannot return them B. Lifestyle management which includes several strategies as below 1. Eat a low carbohydrate good fat good protein diet. Eliminate refined carbohydrates from the diet. Continue blood sugar and sugared beverages. Eat local organic when possible. Cook your own meals. Read food labels. None about healthy snacks. Portion control and food with low glycemic index 2. Exercise regularly. Try to get at least 6000 steps a day. Use a predominant to track activity level. Consider using apps like Cargo.io, Xenaptopal, lose it, stick as needed for self-monitoring and weight management. Consider group exercises. Consider hiring a production trainer. Regular exercise is spear to sustainable health and prevents as a buffer against weight regain 3. Sleep is most important for healing. Tried to sleep at least 8 hours a night. A good quality sleep needs a sleep ritual with ideal room temperature of around 68. It might help to take a shower and have no electronics in the room and sleep in a very dark room without artificial light. Start her sleep routine and get up early in the morning and go to bed on time 4. Make a social connection. Surround yourself with positive people with positive energy. Connect with friends and family. 5. Get into the habit of meditating and mindfulness while doing everything. 6. Go outside and connect with nature. C. Prescription medications Patient was educated on the use of prescription medications for medical weight loss. This is a growing list and includes phentermine, Topamax,Qsymia, contrave, belviq and saxenda. All prescription medications could have side effects including but not limited to kidney stones seizure disorder cardiac arrhythmias heart attack pancreatitis etc. etc.. Patient was encouraged to read the prescription insert and have coaching with their pharmacist and make an informed decision about taking medication and know that these medications are being prescribed with good intentions and we do not know how a patient would react to her medication. Sudden medications are FDA approved for weight loss and there is also off label use depending on patient's inability to afford medications in an attempt to lose weight D. Behavioral counseling was done to establish a relationship between food and an mood. Patient was provided information about local counseling including the office of Dr. Archuleta in [place] and Dr Cervantes at [facility]. We would like to cover regular topics and build on low glycemic eating exercise mindful eating, using yoga and meditation along with deep breathing and connecting with friends and family. E. Patient's current medications were reviewed and opinion was given on medication that can cause weight gain and can be substituted F. Patient was assessed for risk with obesity including and not limiting to atherosclerosis heart disease stroke kidney disease, restrictive lung disease, irritable bowel syndrome and overall mortality. Risk of developing prediabetes diabetes and metabolic syndrome was discussed G. Therapeutic plan: We have decided to make therapeutic plan which would include choosing wisely on calories restricting portion getting active, tracking weight, getting good quality sleep and working on time management H. Patient will follow up in 4 weeks for weight management Total time spent today was 60 minutes of which greater than 50% was spent on coordinating and counseling All questions have been answered to patient's satisfaction. Patient verbalized understanding of diagnosis and treatments explained. Advised to call sooner prior to next visit it any questions/concerns arise. Case discussed with Darci YA who reviewed the assessment and plan. Chart, medications, labs, vital signs reviewed. Dictation was accomplished with the use of Tastemade voice recognition software, which is prone to medical misidentifications and grammatical errors. This are unintentional and the practitioner does try to identify and correct these, but some could still be present. Please do not hesitate to contact practitioner for clarification. 09/14/2024 Weight gain (ICD-10 - R63.5) Clau is a pleasant 39-year-old female who presents to the office today for a weight management consult. 08/12/2024: BMI 41.47, weight 219.5 we discussed supplements at the patient may benefit from including probiotic, cortisol manager etl, HPA adapt. Additionally discussed make injection benefits, patient would like to hold off for now until her lab work is completed for review. Additionally patient is not interested in weight loss medications at this time, however may reconsider in the future. 09/14/2024: BMI 40.34, weight 213.5 consider additional make injection at follow-up. Continue lifestyle changes, patient congratulated on her efforts. Patient has been found to be obese with a BMI of 41.47. We spent a lot of time discussing the relationship between food, exercise, sleep, mental health and obesity. Patient was counseled on the importance EATING local, organic food when possible. Patient was educated on clean 15 and dirty dozen. I provided information about reading books called The Food Rules by Blake Boothe and Eat Fat Get Lean by Dr Misbah Spear. Self education is important in the journey for weight management. Patient was offered diagnostic testing. We want to measure visceral adiposity, advanced body composition, adverse lipids, fatty acid balance, risk for heart disease and atherosclerosis, markers of inflammation and genetic susceptibility. Patient was counseled on weight management and was advised to lose weight using A. Meal Replacement Products Patient was educated on the replacement products called optifast. This is a good way of taking fixed amount of calories. It has been shown in studies to be ineffective weight management tool. This however has to be coupled with lifestyle intervention as well as laboratory data and EKG monitoring. It is impossible to know how a person will tolerate complete meal replacement. The side effects of meal replacement and weight loss could include syncopal attacks, dizziness, gallstones, potential cholecystectomy, possible heart attack and even . The benefits of meal replacement would be potential weight loss but no guarantees can be made. Meal replacement products are not covered by insurance. Once the patient has bought these products we cannot return them B. Lifestyle management which includes several strategies as below 1. Eat a low carbohydrate good fat good protein diet. Eliminate refined carbohydrates from the diet. Continue blood sugar and sugared beverages. Eat local organic when possible. Cook your own meals. Read food labels. None about healthy snacks. Portion control and food with low glycemic index 2. Exercise regularly. Try to get at least 6000 steps a day. Use a predominant to track activity level. Consider using apps like Cargo.io, myfitmakeenapal, lose it, stick as needed for self-monitoring and weight management. Consider group exercises. Consider hiring a production trainer. Regular exercise is spear to sustainable health and prevents as a buffer against weight regain 3. Sleep is most important for healing. Tried to sleep at least 8 hours a night. A good quality sleep needs a sleep ritual with ideal room temperature of around 68. It might help to take a shower and have no electronics in the room and sleep in a very dark room without artificial light. Start her sleep routine and get up early in the morning and go to bed on time 4. Make a social connection. Surround yourself with positive people with positive energy. Connect with friends and family. 5. Get into the habit of meditating and mindfulness while doing everything. 6. Go outside and connect with nature. C. Prescription medications Patient was educated on the use of prescription medications for medical weight loss. This is a growing list and includes phentermine, Topamax,Qsymia, contrave, belviq and saxenda. All prescription medications could have side effects including but not limited to kidney stones seizure disorder cardiac arrhythmias heart attack pancreatitis etc. etc.. Patient was encouraged to read the prescription insert and have coaching with their pharmacist and make an informed decision about taking medication and know that these medications are being prescribed with good intentions and we do not know how a patient would react to her medication. Sudden medications are FDA approved for weight loss and there is also off label use depending on patient's inability to afford medications in an attempt to lose weight D. Behavioral counseling was done to establish a relationship between food and an mood. Patient was provided information about local counseling including the office of Dr. Archuleta in [place] and Dr Cervantes at [facility]. We would like to cover regular topics and build on low glycemic eating exercise mindful eating, using yoga and meditation along with deep breathing and connecting with friends and family. E. Patient's current medications were reviewed and opinion was given on medication that can cause weight gain and can be substituted F. Patient was assessed for risk with obesity including and not limiting to atherosclerosis heart disease stroke kidney disease, restrictive lung disease, irritable bowel syndrome and overall mortality. Risk of developing prediabetes diabetes and metabolic syndrome was discussed G. Therapeutic plan: We have decided to make therapeutic plan which would include choosing wisely on calories restricting portion getting active, tracking weight, getting good quality sleep and working on time management H. Patient will follow up in 4 weeks for weight management Total time spent today was 60 minutes of which greater than 50% was spent on coordinating and counseling All questions have been answered to patient's satisfaction. Patient verbalized understanding of diagnosis and treatments explained. Advised to call sooner prior to next visit it any questions/concerns arise. Case discussed with Darci YA who reviewed the assessment and plan. Chart, medications, labs, vital signs reviewed. Dictation was accomplished with the use of Tastemade voice recognition software, which is prone to medical misidentifications and grammatical errors. This are unintentional and the practitioner does try to identify and correct these, but some could still be present. Please do not hesitate to contact practitioner for clarification. 11/08/2024 Seasonal allergies (ICD-10 - J30.2) Clau is a pleasant 38-year-old female who presents to the office today for a follow up... #Seasonal allergies: Currently controlled #Dermatology referral: Saw Derm a few weeks ago, there were no abnormalities noted per patient. Was seen at [facility]. #Weight gain: Follows with weight managament #Gestational diabetes: Patient does have a history of gestational diabetes, resolved. #Numbness and tingling: Suspected carpal tunnel within right upper extremity due to duration of symptoms, right upper extremity EMG will be ordered to further assess this. In regards to intermittent swelling, there is no concern for a blood clot at this time as the swelling does subside, does not occur daily, is intermittent and subsides after ice rolling the area. Suspected nerve inflammation due to tingling appreciated when median and ulnar nerve are compressed within the right upper extremity. Patient would like to hold off on surgery if this is an option after results are conducted due to having a young child at home still. We will discuss different management options such as splinting, icing when she has results back #Snoring: Pulmonology referral for sleep study will be placed today for further assessment #Hypertriglyceridemia : Patient advised to take fish oil #Prediabetes: Recent HA1C 5.7%. All questions have been answered to patient's satisfaction. Patient verbalized understanding of diagnosis and treatments explained. Advised to call sooner prior to next visit it any questions/concerns arise. Case discussed with Darci YA who reviewed the assessment and plan. Chart, medications, labs, vital signs reviewed. Dictation was accomplished with the use of Tastemade voice recognition software, which is prone to medical misidentifications and grammatical errors. This are unintentional and the practitioner does try to identify and correct these, but some could still be present. Please do not hesitate to contact practitioner for clarification. 11/26/2024 Weight gain (ICD-10 - R63.5) Clau is a pleasant 39-year-old female who presents to the office today for a weight management consult. 08/12/2024: BMI 41.47, weight 219.5 we discussed supplements at the patient may benefit from including probiotic, cortisol manager etl, HPA adapt. Additionally discussed make injection benefits, patient would like to hold off for now until her lab work is completed for review. Additionally patient is not interested in weight loss medications at this time, however may reconsider in the future. 09/14/2024: BMI 40.34, weight 213.5 consider additional make injection at follow-up. Continue lifestyle changes, patient congratulated on her efforts. 10/14/24: BMI 39.81, weight 210.7 continue lifestyle changes. #Bowel movements: Continue taking probiotics 11/26/2024: BMI 38.79, weight 205.3 continue with lifestyle changes, continue dietary supplement berberine #Creatine: Patient inquiring about creatine, I advised against this as this may impact kidney function. Patient in agreement. She will hold off on taking any supplementation at this time in regards to electrolytes or creatinine. She states that she is taking nectar electrolyte supplements consider rechecking kidney function at next appointment. Patient is here for weight management followup. We focused on significance of healthy lifestyle changes. We talked about need to track steps, work on portion control, read food labels, get adequate sleep, give adequate rest of the body, meditate, frequent nutritious meals including vegetables and healthy choices of meat and elimination of refined carbohydrates. We also talked about mindfulness and mindful eating. Particular focus was on lifestyle changes Total time spent was 30 minutes with greater than 50% spent on counseling and coordinating care All questions have been answered to patient's satisfaction. Patient verbalized understanding of diagnosis and treatments explained. Advised to call sooner prior to next visit it any questions/concerns arise. Case discussed with Darci YA who reviewed the assessment and plan. Chart, medications, labs, vital signs reviewed. Dictation was accomplished with the use of Tastemade voice recognition software, which is prone to medical misidentifications and grammatical errors. This are unintentional and the practitioner does try to identify and correct these, but some could still be present. Please do not hesitate to contact practitioner for clarification. 01/03/2025 Dietary counseling and surveillance (ICD-10 - Z71.3) Clau is a pleasant 39-year-old female who presents to the office today for a weight management consult. 08/12/2024: BMI 41.47, weight 219.5 we discussed supplements at the patient may benefit from including probiotic, cortisol manager etl, HPA adapt. Additionally discussed make injection benefits, patient would like to hold off for now until her lab work is completed for review. Additionally patient is not interested in weight loss medications at this time, however may reconsider in the future. 09/14/2024: BMI 40.34, weight 213.5 consider additional make injection at follow-up. Continue lifestyle changes, patient congratulated on her efforts. 10/14/24: BMI 39.81, weight 210.7 continue lifestyle changes. #Bowel movements: Continue taking probiotics 11/26/2024: BMI 38.79, weight 205.3 continue with lifestyle changes, continue dietary supplement berberine #Creatine: Patient inquiring about creatine, I advised against this as this may impact kidney function. Patient in agreement. She will hold off on taking any supplementation at this time in regards to electrolytes or creatinine. She states that she is taking nectar electrolyte supplements consider rechecking kidney function at next appointment. 01/03/2025: BMI 38.43, weight 203.4 MICC injection given today, continue berberine. Continue lifestyle changes, continue increasing water intake. Patient is here for weight management followup. We focused on significance of healthy lifestyle changes. We talked about need to track steps, work on portion control, read food labels, get adequate sleep, give adequate rest of the body, meditate, frequent nutritious meals including vegetables and healthy choices of meat and elimination of refined carbohydrates. We also talked about mindfulness and mindful eating. Particular focus was on lifestyle changes Total time spent was 30 minutes with greater than 50% spent on counseling and coordinating care All questions have been answered to patient's satisfaction. Patient verbalized understanding of diagnosis and treatments explained. Advised to call sooner prior to next visit it any questions/concerns arise. Case discussed with Darci YA who reviewed the assessment and plan. Chart, medications, labs, vital signs reviewed. Dictation was accomplished with the use of Tastemade voice recognition software, which is prone to medical misidentifications and grammatical errors. This are unintentional and the practitioner does try to identify and correct these, but some could still be present. Please do not hesitate to contact practitioner for clarification. 01/03/2025 Weight gain (ICD-10 - R63.5) Clau is a pleasant 39-year-old female who presents to the office today for a weight management consult. 08/12/2024: BMI 41.47, weight 219.5 we discussed supplements at the patient may benefit from including probiotic, cortisol manager etl, HPA adapt. Additionally discussed make injection benefits, patient would like to hold off for now until her lab work is completed for review. Additionally patient is not interested in weight loss medications at this time, however may reconsider in the future. 09/14/2024: BMI 40.34, weight 213.5 consider additional make injection at follow-up. Continue lifestyle changes, patient congratulated on her efforts. 10/14/24: BMI 39.81, weight 210.7 continue lifestyle changes. #Bowel movements: Continue taking probiotics 11/26/2024: BMI 38.79, weight 205.3 continue with lifestyle changes, continue dietary supplement berberine #Creatine: Patient inquiring about creatine, I advised against this as this may impact kidney function. Patient in agreement. She will hold off on taking any supplementation at this time in regards to electrolytes or creatinine. She states that she is taking nectar electrolyte supplements consider rechecking kidney function at next appointment. 01/03/2025: BMI 38.43, weight 203.4 MICC injection given today, continue berberine. Continue lifestyle changes, continue increasing water intake. Patient is here for weight management followup. We focused on significance of healthy lifestyle changes. We talked about need to track steps, work on portion control, read food labels, get adequate sleep, give adequate rest of the body, meditate, frequent nutritious meals including vegetables and healthy choices of meat and elimination of refined carbohydrates. We also talked about mindfulness and mindful eating. Particular focus was on lifestyle changes Total time spent was 30 minutes with greater than 50% spent on counseling and coordinating care All questions have been answered to patient's satisfaction. Patient verbalized understanding of diagnosis and treatments explained. Advised to call sooner prior to next visit it any questions/concerns arise. Case discussed with Darci YA who reviewed the assessment and plan. Chart, medications, labs, vital signs reviewed. Dictation was accomplished with the use of Tastemade voice recognition software, which is prone to medical misidentifications and grammatical errors. This are unintentional and the practitioner does try to identify and correct these, but some could still be present. Please do not hesitate to contact practitioner for clarification. 11/26/2024 Excessive weight gain (ICD-10 - R63.5) Clau is a pleasant 39-year-old female who presents to the office today for a weight management consult. 08/12/2024: BMI 41.47, weight 219.5 we discussed supplements at the patient may benefit from including probiotic, cortisol manager etl, HPA adapt. Additionally discussed make injection benefits, patient would like to hold off for now until her lab work is completed for review. Additionally patient is not interested in weight loss medications at this time, however may reconsider in the future. 09/14/2024: BMI 40.34, weight 213.5 consider additional make injection at follow-up. Continue lifestyle changes, patient congratulated on her efforts. 10/14/24: BMI 39.81, weight 210.7 continue lifestyle changes. #Bowel movements: Continue taking probiotics 11/26/2024: BMI 38.79, weight 205.3 continue with lifestyle changes, continue dietary supplement berberine #Creatine: Patient inquiring about creatine, I advised against this as this may impact kidney function. Patient in agreement. She will hold off on taking any supplementation at this time in regards to electrolytes or creatinine. She states that she is taking nectar electrolyte supplements consider rechecking kidney function at next appointment. Patient is here for weight management followup. We focused on significance of healthy lifestyle changes. We talked about need to track steps, work on portion control, read food labels, get adequate sleep, give adequate rest of the body, meditate, frequent nutritious meals including vegetables and healthy choices of meat and elimination of refined carbohydrates. We also talked about mindfulness and mindful eating. Particular focus was on lifestyle changes Total time spent was 30 minutes with greater than 50% spent on counseling and coordinating care All questions have been answered to patient's satisfaction. Patient verbalized understanding of diagnosis and treatments explained. Advised to call sooner prior to next visit it any questions/concerns arise. Case discussed with Darci YA who reviewed the assessment and plan. Chart, medications, labs, vital signs reviewed. Dictation was accomplished with the use of Tastemade voice recognition software, which is prone to medical misidentifications and grammatical errors. This are unintentional and the practitioner does try to identify and correct these, but some could still be present. Please do not hesitate to contact practitioner for clarification. 11/08/2024 Anxiety (ICD-10 - F41.9) Clau is a pleasant 38-year-old female who presents to the office today for a follow up... #Seasonal allergies: Currently controlled #Dermatology referral: Saw Derm a few weeks ago, there were no abnormalities noted per patient. Was seen at [facility]. #Weight gain: Follows with weight managament #Gestational diabetes: Patient does have a history of gestational diabetes, resolved. #Numbness and tingling: Suspected carpal tunnel within right upper extremity due to duration of symptoms, right upper extremity EMG will be ordered to further assess this. In regards to intermittent swelling, there is no concern for a blood clot at this time as the swelling does subside, does not occur daily, is intermittent and subsides after ice rolling the area. Suspected nerve inflammation due to tingling appreciated when median and ulnar nerve are compressed within the right upper extremity. Patient would like to hold off on surgery if this is an option after results are conducted due to having a young child at home still. We will discuss different management options such as splinting, icing when she has results back #Snoring: Pulmonology referral for sleep study will be placed today for further assessment #Hypertriglyceridemia : Patient advised to take fish oil #Prediabetes: Recent HA1C 5.7%. All questions have been answered to patient's satisfaction. Patient verbalized understanding of diagnosis and treatments explained. Advised to call sooner prior to next visit it any questions/concerns arise. Case discussed with Darci YA who reviewed the assessment and plan. Chart, medications, labs, vital signs reviewed. Dictation was accomplished with the use of Tastemade voice recognition software, which is prone to medical misidentifications and grammatical errors. This are unintentional and the practitioner does try to identify and correct these, but some could still be present. Please do not hesitate to contact practitioner for clarification. 10/14/2024 Excessive weight gain (ICD-10 - R63.5) Clau is a pleasant 39-year-old female who presents to the office today for a weight management consult. 08/12/2024: BMI 41.47, weight 219.5 we discussed supplements at the patient may benefit from including probiotic, cortisol manager etl, HPA adapt. Additionally discussed make injection benefits, patient would like to hold off for now until her lab work is completed for review. Additionally patient is not interested in weight loss medications at this time, however may reconsider in the future. 09/14/2024: BMI 40.34, weight 213.5 consider additional make injection at follow-up. Continue lifestyle changes, patient congratulated on her efforts. 10/14/24: BMI 39.81, weight 210.7 continue lifestyle changes. #Bowel movements: Continue taking probiotics Patient has been found to be obese with a BMI of 41.47. We spent a lot of time discussing the relationship between food, exercise, sleep, mental health and obesity. Patient was counseled on the importance EATING local, organic food when possible. Patient was educated on clean 15 and dirty dozen. I provided information about reading books called The Food Rules by Blake Boothe and Eat Fat Get Lean by Dr Misbah Spear. Self education is important in the journey for weight management. Patient was offered diagnostic testing. We want to measure visceral adiposity, advanced body composition, adverse lipids, fatty acid balance, risk for heart disease and atherosclerosis, markers of inflammation and genetic susceptibility. Patient was counseled on weight management and was advised to lose weight using A. Meal Replacement Products Patient was educated on the replacement products called optifast. This is a good way of taking fixed amount of calories. It has been shown in studies to be ineffective weight management tool. This however has to be coupled with lifestyle intervention as well as laboratory data and EKG monitoring. It is impossible to know how a person will tolerate complete meal replacement. The side effects of meal replacement and weight loss could include syncopal attacks, dizziness, gallstones, potential cholecystectomy, possible heart attack and even . The benefits of meal replacement would be potential weight loss but no guarantees can be made. Meal replacement products are not covered by insurance. Once the patient has bought these products we cannot return them B. Lifestyle management which includes several strategies as below 1. Eat a low carbohydrate good fat good protein diet. Eliminate refined carbohydrates from the diet. Continue blood sugar and sugared beverages. Eat local organic when possible. Cook your own meals. Read food labels. None about healthy snacks. Portion control and food with low glycemic index 2. Exercise regularly. Try to get at least 6000 steps a day. Use a predominant to track activity level. Consider using apps like Cargo.io, myfitnesspal, lose it, stick as needed for self-monitoring and weight management. Consider group exercises. Consider hiring a production trainer. Regular exercise is spear to sustainable health and prevents as a buffer against weight regain 3. Sleep is most important for healing. Tried to sleep at least 8 hours a night. A good quality sleep needs a sleep ritual with ideal room temperature of around 68. It might help to take a shower and have no electronics in the room and sleep in a very dark room without artificial light. Start her sleep routine and get up early in the morning and go to bed on time 4. Make a social connection. Surround yourself with positive people with positive energy. Connect with friends and family. 5. Get into the habit of meditating and mindfulness while doing everything. 6. Go outside and connect with nature. C. Prescription medications Patient was educated on the use of prescription medications for medical weight loss. This is a growing list and includes phentermine, Topamax,Qsymia, contrave, belviq and saxenda. All prescription medications could have side effects including but not limited to kidney stones seizure disorder cardiac arrhythmias heart attack pancreatitis etc. etc.. Patient was encouraged to read the prescription insert and have coaching with their pharmacist and make an informed decision about taking medication and know that these medications are being prescribed with good intentions and we do not know how a patient would react to her medication. Sudden medications are FDA approved for weight loss and there is also off label use depending on patient's inability to afford medications in an attempt to lose weight D. Behavioral counseling was done to establish a relationship between food and an mood. Patient was provided information about local counseling including the office of Dr. Archuleta in [place] and Dr Cervantes at [facility]. We would like to cover regular topics and build on low glycemic eating exercise mindful eating, using yoga and meditation along with deep breathing and connecting with friends and family. E. Patient's current medications were reviewed and opinion was given on medication that can cause weight gain and can be substituted F. Patient was assessed for risk with obesity including and not limiting to atherosclerosis heart disease stroke kidney disease, restrictive lung disease, irritable bowel syndrome and overall mortality. Risk of developing prediabetes diabetes and metabolic syndrome was discussed G. Therapeutic plan: We have decided to make therapeutic plan which would include choosing wisely on calories restricting portion getting active, tracking weight, getting good quality sleep and working on time management H. Patient will follow up in 4 weeks for weight management Total time spent today was 60 minutes of which greater than 50% was spent on coordinating and counseling All questions have been answered to patient's satisfaction. Patient verbalized understanding of diagnosis and treatments explained. Advised to call sooner prior to next visit it any questions/concerns arise. Case discussed with Darci YA who reviewed the assessment and plan. Chart, medications, labs, vital signs reviewed. Dictation was accomplished with the use of Tastemade voice recognition software, which is prone to medical misidentifications and grammatical errors. This are unintentional and the practitioner does try to identify and correct these, but some could still be present. Please do not hesitate to contact practitioner for clarification. 09/14/2024 Dietary counseling and surveillance (ICD-10 - Z71.3) Clau is a pleasant 39-year-old female who presents to the office today for a weight management consult. 08/12/2024: BMI 41.47, weight 219.5 we discussed supplements at the patient may benefit from including probiotic, cortisol manager etl, HPA adapt. Additionally discussed make injection benefits, patient would like to hold off for now until her lab work is completed for review. Additionally patient is not interested in weight loss medications at this time, however may reconsider in the future. 09/14/2024: BMI 40.34, weight 213.5 consider additional make injection at follow-up. Continue lifestyle changes, patient congratulated on her efforts. Patient has been found to be obese with a BMI of 41.47. We spent a lot of time discussing the relationship between food, exercise, sleep, mental health and obesity. Patient was counseled on the importance EATING local, organic food when possible. Patient was educated on clean 15 and dirty dozen. I provided information about reading books called The Food Rules by Blake Boothe and Eat Fat Get Lean by Dr Misbah Spear. Self education is important in the journey for weight management. Patient was offered diagnostic testing. We want to measure visceral adiposity, advanced body composition, adverse lipids, fatty acid balance, risk for heart disease and atherosclerosis, markers of inflammation and genetic susceptibility. Patient was counseled on weight management and was advised to lose weight using A. Meal Replacement Products Patient was educated on the replacement products called optifast. This is a good way of taking fixed amount of calories. It has been shown in studies to be ineffective weight management tool. This however has to be coupled with lifestyle intervention as well as laboratory data and EKG monitoring. It is impossible to know how a person will tolerate complete meal replacement. The side effects of meal replacement and weight loss could include syncopal attacks, dizziness, gallstones, potential cholecystectomy, possible heart attack and even . The benefits of meal replacement would be potential weight loss but no guarantees can be made. Meal replacement products are not covered by insurance. Once the patient has bought these products we cannot return them B. Lifestyle management which includes several strategies as below 1. Eat a low carbohydrate good fat good protein diet. Eliminate refined carbohydrates from the diet. Continue blood sugar and sugared beverages. Eat local organic when possible. Cook your own meals. Read food labels. None about healthy snacks. Portion control and food with low glycemic index 2. Exercise regularly. Try to get at least 6000 steps a day. Use a predominant to track activity level. Consider using apps like Cargo.io, Xenaptopal, lose it, stick as needed for self-monitoring and weight management. Consider group exercises. Consider hiring a production trainer. Regular exercise is spear to sustainable health and prevents as a buffer against weight regain 3. Sleep is most important for healing. Tried to sleep at least 8 hours a night. A good quality sleep needs a sleep ritual with ideal room temperature of around 68. It might help to take a shower and have no electronics in the room and sleep in a very dark room without artificial light. Start her sleep routine and get up early in the morning and go to bed on time 4. Make a social connection. Surround yourself with positive people with positive energy. Connect with friends and family. 5. Get into the habit of meditating and mindfulness while doing everything. 6. Go outside and connect with nature. C. Prescription medications Patient was educated on the use of prescription medications for medical weight loss. This is a growing list and includes phentermine, Topamax,Qsymia, contrave, belviq and saxenda. All prescription medications could have side effects including but not limited to kidney stones seizure disorder cardiac arrhythmias heart attack pancreatitis etc. etc.. Patient was encouraged to read the prescription insert and have coaching with their pharmacist and make an informed decision about taking medication and know that these medications are being prescribed with good intentions and we do not know how a patient would react to her medication. Sudden medications are FDA approved for weight loss and there is also off label use depending on patient's inability to afford medications in an attempt to lose weight D. Behavioral counseling was done to establish a relationship between food and an mood. Patient was provided information about local counseling including the office of Dr. Archuleta in [place] and Dr Cervantes at [facility]. We would like to cover regular topics and build on low glycemic eating exercise mindful eating, using yoga and meditation along with deep breathing and connecting with friends and family. E. Patient's current medications were reviewed and opinion was given on medication that can cause weight gain and can be substituted F. Patient was assessed for risk with obesity including and not limiting to atherosclerosis heart disease stroke kidney disease, restrictive lung disease, irritable bowel syndrome and overall mortality. Risk of developing prediabetes diabetes and metabolic syndrome was discussed G. Therapeutic plan: We have decided to make therapeutic plan which would include choosing wisely on calories restricting portion getting active, tracking weight, getting good quality sleep and working on time management H. Patient will follow up in 4 weeks for weight management Total time spent today was 60 minutes of which greater than 50% was spent on coordinating and counseling All questions have been answered to patient's satisfaction. Patient verbalized understanding of diagnosis and treatments explained. Advised to call sooner prior to next visit it any questions/concerns arise. Case discussed with Darci YA who reviewed the assessment and plan. Chart, medications, labs, vital signs reviewed. Dictation was accomplished with the use of Tastemade voice recognition software, which is prone to medical misidentifications and grammatical errors. This are unintentional and the practitioner does try to identify and correct these, but some could still be present. Please do not hesitate to contact practitioner for clarification. 08/13/2024 Anxiety (ICD-10 - F41.9) Clau is a pleasant 38-year-old female who presents to the office today for a CPE. #Seasonal allergies: Currently controlled #Dermatology referral: Patient requesting dermatology referral, large skin tag or keratoses appreciated on the lumbar region of the patient's back. #Weight gain: Follows with weight managament #Gestational diabetes: Patient does have a history of gestational diabetes, resolved. #Anxiety: Currently on no medications, PHQ-9:0 #Numbness and tingling: Suspected carpal tunnel within right upper extremity due to duration of symptoms, right upper extremity EMG will be ordered to further assess this. In regards to intermittent swelling, there is no concern for a blood clot at this time as the swelling does subside, does not occur daily, is intermittent and subsides after ice rolling the area. Suspected nerve inflammation due to tingling appreciated when median and ulnar nerve are compressed within the right upper extremity. #Snoring: Pulmonology referral for sleep study will be placed today for further assessment #Hypertriglyceridemia : Patient advised to take fish oil #Prediabetes: Patient advised to complete lifestyle changes, pay attention to a diabetic diet within the next 3 months. Will reevaluate patient's hemoglobin A1c at follow-up visit. Patient advised that if the hemoglobin A1c continues to rise, we will have to discuss medications Physical Women Patient seen and examined. Comprehensive discussion was done on the following. 1. Nutrition: It is important to follow a healthy diet based on lots of vegetables and legumes and good fat. Avoid processed food and processed carbohydrates. Learn to prepare your own meals. Learn to read labels and avoid high fructose corn syrup, processed chemicals added to increase shelf life and preprepared meals. Avoid fast foods. Learn to eat slowly and plan meals for a week. Try to count calories and be mindful off daily calorie intake. Get into the habit of keeping an eye on your weight by using an appropriate scale. Learn to log exercise and discussed fitness Apps like FriendFit which can help keep log off calories taken versus calories burned. Local food should be preferred. Discussed Dirty Dozen Versus Clean Fifteen. Discussed healthy supplements like fish oil, Tumeric, Curcumin, Melatonin, Resveratrol, Probiotics, Vitamin-D, Alpha-Lipoic acid, Vitamin-D and coconut oil. 2. It is important to exercise regularly. Is a good habit to walk at least 30-45 minutes a day. Gentle weightlifting with standard precautions to protect the back. Finding activity like cycling or hiking and get into the habit of engaging in it. Stretching before and after the exercises important. It is also important to contact me if there are any problems like shortness of breath, chest pain, back pain and joint or muscle pain associated with the exercise. 3. Discussed age appropriate screening guidelines. Colonoscopy needs to start at age 50 with stool for occult blood as appropriate. There is a new test that can test for genetic abnormalities in the stool sample. This would not replace a colonoscopy but could be used as a screening tool for patients who do not want a colonoscopy. We discussed the importance of early detection of colon cancer. 4. Discussed current guidelines with respect to breast examination, mammogram and pap smear for early detection of breast and cervical cancer. Patient advised to follow up with these appointments. 5. Discussed safe driving and no use of smart phone while driving 6. Age-appropriate immunizations were discussed. A tetanus booster is needed every 10 years. Flu vaccine is recommended every year just before the start of the flu season. Shingles vaccine is recommended after age 50 but not all insurances cover it. Pneumonia vaccine is given after age 65 unless there are certain comorbidities for which it is started earlier. 7. Diagnostic labs were discussed. These could include CBC CMP and lipids with fasting blood glucose and insulin levels. Vitamin D and hemoglobin A1c testing might be appropriate. All questions have been answered to patient's satisfaction. Patient verbalized understanding of diagnosis and treatments explained. Advised to call sooner prior to next visit it any questions/concerns arise. Case discussed with Darci YA who reviewed the assessment and plan. Chart, medications, labs, vital signs reviewed. Dictation was accomplished with the use of Tastemade voice recognition software, which is prone to medical misidentifications and grammatical errors. This are unintentional and the practitioner does try to identify and correct these, but some could still be present. Please do not hesitate to contact practitioner for clarification. 11/26/2024 Encounter for examination of blood pressure without abnormal findings (ICD-10 - Z01.30) Clau is a pleasant 39-year-old female who presents to the office today for a weight management consult. 08/12/2024: BMI 41.47, weight 219.5 we discussed supplements at the patient may benefit from including probiotic, cortisol manager etl, HPA adapt. Additionally discussed make injection benefits, patient would like to hold off for now until her lab work is completed for review. Additionally patient is not interested in weight loss medications at this time, however may reconsider in the future. 09/14/2024: BMI 40.34, weight 213.5 consider additional make injection at follow-up. Continue lifestyle changes, patient congratulated on her efforts. 10/14/24: BMI 39.81, weight 210.7 continue lifestyle changes. #Bowel movements: Continue taking probiotics 11/26/2024: BMI 38.79, weight 205.3 continue with lifestyle changes, continue dietary supplement berberine #Creatine: Patient inquiring about creatine, I advised against this as this may impact kidney function. Patient in agreement. She will hold off on taking any supplementation at this time in regards to electrolytes or creatinine. She states that she is taking nectar electrolyte supplements consider rechecking kidney function at next appointment. Patient is here for weight management followup. We focused on significance of healthy lifestyle changes. We talked about need to track steps, work on portion control, read food labels, get adequate sleep, give adequate rest of the body, meditate, frequent nutritious meals including vegetables and healthy choices of meat and elimination of refined carbohydrates. We also talked about mindfulness and mindful eating. Particular focus was on lifestyle changes Total time spent was 30 minutes with greater than 50% spent on counseling and coordinating care All questions have been answered to patient's satisfaction. Patient verbalized understanding of diagnosis and treatments explained. Advised to call sooner prior to next visit it any questions/concerns arise. Case discussed with Darci YA who reviewed the assessment and plan. Chart, medications, labs, vital signs reviewed. Dictation was accomplished with the use of Tastemade voice recognition software, which is prone to medical misidentifications and grammatical errors. This are unintentional and the practitioner does try to identify and correct these, but some could still be present. Please do not hesitate to contact practitioner for clarification. 01/03/2025 Excessive weight gain (ICD-10 - R63.5) Clau is a pleasant 39-year-old female who presents to the office today for a weight management consult. 08/12/2024: BMI 41.47, weight 219.5 we discussed supplements at the patient may benefit from including probiotic, cortisol manager etl, HPA adapt. Additionally discussed make injection benefits, patient would like to hold off for now until her lab work is completed for review. Additionally patient is not interested in weight loss medications at this time, however may reconsider in the future. 09/14/2024: BMI 40.34, weight 213.5 consider additional make injection at follow-up. Continue lifestyle changes, patient congratulated on her efforts. 10/14/24: BMI 39.81, weight 210.7 continue lifestyle changes. #Bowel movements: Continue taking probiotics 11/26/2024: BMI 38.79, weight 205.3 continue with lifestyle changes, continue dietary supplement berberine #Creatine: Patient inquiring about creatine, I advised against this as this may impact kidney function. Patient in agreement. She will hold off on taking any supplementation at this time in regards to electrolytes or creatinine. She states that she is taking nectar electrolyte supplements consider rechecking kidney function at next appointment. 01/03/2025: BMI 38.43, weight 203.4 MICC injection given today, continue berberine. Continue lifestyle changes, continue increasing water intake. Patient is here for weight management followup. We focused on significance of healthy lifestyle changes. We talked about need to track steps, work on portion control, read food labels, get adequate sleep, give adequate rest of the body, meditate, frequent nutritious meals including vegetables and healthy choices of meat and elimination of refined carbohydrates. We also talked about mindfulness and mindful eating. Particular focus was on lifestyle changes Total time spent was 30 minutes with greater than 50% spent on counseling and coordinating care All questions have been answered to patient's satisfaction. Patient verbalized understanding of diagnosis and treatments explained. Advised to call sooner prior to next visit it any questions/concerns arise. Case discussed with Darci YA who reviewed the assessment and plan. Chart, medications, labs, vital signs reviewed. Dictation was accomplished with the use of [employer] voice recognition software, which is prone to medical misidentifications and grammatical errors. This are unintentional and the practitioner does try to identify and correct these, but some could still be present. Please do not hesitate to contact practitioner for clarification. 01/03/2025 Encounter for examination of blood pressure without abnormal findings (ICD-10 - Z01.30) Clau is a pleasant 39-year-old female who presents to the office today for a weight management consult. 08/12/2024: BMI 41.47, weight 219.5 we discussed supplements at the patient may benefit from including probiotic, cortisol manager etl, HPA adapt. Additionally discussed make injection benefits, patient would like to hold off for now until her lab work is completed for review. Additionally patient is not interested in weight loss medications at this time, however may reconsider in the future. 09/14/2024: BMI 40.34, weight 213.5 consider additional make injection at follow-up. Continue lifestyle changes, patient congratulated on her efforts. 10/14/24: BMI 39.81, weight 210.7 continue lifestyle changes. #Bowel movements: Continue taking probiotics 11/26/2024: BMI 38.79, weight 205.3 continue with lifestyle changes, continue dietary supplement berberine #Creatine: Patient inquiring about creatine, I advised against this as this may impact kidney function. Patient in agreement. She will hold off on taking any supplementation at this time in regards to electrolytes or creatinine. She states that she is taking nectar electrolyte supplements consider rechecking kidney function at next appointment. 01/03/2025: BMI 38.43, weight 203.4 MICC injection given today, continue berberine. Continue lifestyle changes, continue increasing water intake. Patient is here for weight management followup. We focused on significance of healthy lifestyle changes. We talked about need to track steps, work on portion control, read food labels, get adequate sleep, give adequate rest of the body, meditate, frequent nutritious meals including vegetables and healthy choices of meat and elimination of refined carbohydrates. We also talked about mindfulness and mindful eating. Particular focus was on lifestyle changes Total time spent was 30 minutes with greater than 50% spent on counseling and coordinating care All questions have been answered to patient's satisfaction. Patient verbalized understanding of diagnosis and treatments explained. Advised to call sooner prior to next visit it any questions/concerns arise. Case discussed with Darci YA who reviewed the assessment and plan. Chart, medications, labs, vital signs reviewed. Dictation was accomplished with the use of [employer] voice recognition software, which is prone to medical misidentifications and grammatical errors. This are unintentional and the practitioner does try to identify and correct these, but some could still be present. Please do not hesitate to contact practitioner for clarification. Plan Of Treatment Pending Test Test Name Order Date EMG/NCV ARMS 08/13/2024 LIPID PANEL, STANDARD 07/06/2024 FSH AND LH 07/06/2024 COMPREHENSIVE METABOLIC PANEL 07/06/2024 BASIC METABOLIC PANEL 07/06/2024 CBC (INCLUDES DIFF/PLT) 07/06/2024 HEMOGLOBIN A1c 07/06/2024 INSULIN 07/06/2024 PROGESTERONE 07/06/2024 VITAMIN B12 07/06/2024 T4, FREE 07/06/2024 CORTISOL, TOTAL 07/06/2024 TSH 07/06/2024 T3, FREE 07/06/2024 VITAMIN D,25-OH,TOTAL,IA 07/06/2024 ESTROGEN, TOTAL, SERUM 07/06/2024 TESTOSTERONE, FREE (DIALYSIS) AND TOTAL, MS 07/06/2024 PPC Hemoglobin A1C 11/08/2024 Next Appt Details Provider Name:RAIZA CYR, 09:45:00 AM, [address], [place], [address], Provider Name:RAIZA NIKI, 08:15:00 AM, [address], [place], [address], Insurance Providers Payer Name Payer Address Payer Phone Subscriber Number Group Number Insured Name Patient Relationship to Insured Coverage Start Date Coverage End Date [facility] [address] [place] [address] [phone] [id number] CLAU CHARLTON Self - patient is the insured Medications Administered Medication Instructions Date of Administration Dosage Notes MICC B12 INJECTION 01/03/2025 1 mL Medical (General) History Medical History History ICD Code Seasonal allergies J30.2 History of gestational diabetes Z86.32 Anxiety F41.9 Surgical History Surgery Date(Month/Year) section 12/26/2023 Hospitalization History Reason Date(Month/Year) Ceasarean Section
== END 2025-01-17 16:02 | disposition home or self-care (01) ==
LOC: HO.HPS 15:34
PROVIDERS: Visit Provider Nurse Practitioner Family
DX: R06.83 Snoring (principal)
CPT/HCPCS: 99203

== ENCOUNTER → 2025-05-02 11:00 | Outpatient (REF) | payer BC, SELFPAY | LOC: HO.SL 11:00 | PROVIDERS: Visit Provider Nurse Practitioner Family | DX: R06.83 Snoring (principal); R40.0 Somnolence; G47.33 Obstructive sleep apnea (adult) (pediatric) | CPT/HCPCS: 95806 ==

== ENCOUNTER → 2025-05-02 11:08 | Outpatient (BNV) | payer BC, SELFPAY | PROVIDERS: Visit Provider Internal Medicine | DX: G47.33 Obstructive sleep apnea (adult) (pediatric) (principal) | CPT/HCPCS: 95806 ==